=== PATIENT | male | born 1945 | race Caucasian/White ===

== ENCOUNTER 2018-05-17 07:33 | Inpatient (IN) | payer OTHER ==
[2018-04-23 09:42] VITALS: BMI 33.0
--- NOTE | 2018-04-26 12:23 | PAT Medication Instructions ---
Service Date Apr 26, 2018. Current Home Medication List Aspirin (Aspirin Ec), 81 MG PO 1-2X PER WEEK Multivitamin (Multivitamin), 1 TAB PO QAM Naproxen (Naprosyn), 500 MG PO BID PRN for Pain Tamsulosin HCl (Tamsulosin HCl), 1 TAB PO QAM Medication Instructions For Your Scheduled Surgery -Continue as directed: Aspirin (Aspirin Ec), 81 MG PO 1-2X PER WEEK - Hold the following medications 7-10 days prior to surgery per surgeon: Naproxen (Naprosyn), 500 MG PO BID PRN for Pain - Hold the following medications the morning of surgery: Multivitamin (Multivitamin), 1 TAB PO QAM - Take the following medications the morning of surgery with a sip of water: Tamsulosin HCl (Tamsulosin HCl), 1 TAB PO QAM If you have any questions please call us at [phone] or [phone] or [phone]
--- NOTE | 2018-04-26 13:04 | DIAGNOSTIC IMAGING REPORT ---
CHEST 2 VIEWS ROUTINE CLINICAL HISTORY: Preoperative chest COMPARISON STUDY: 03/14/2014 FINDINGS: The cardiac and mediastinal contours are normal. There is no evidence of focal pulmonary consolidation. There is no evidence of failure. No pleural effusions are visualized.[ IMPRESSION: No active disease in the chest. Electronically signed by: Gregorio Liao M.D. 04/26/2018 1:02 PM Dictated Date/Time: 04/26/2018 1:02 PM
[2018-04-26 13:14] LABS: BASO % 0.3 %; BASO ABS # 0.02 K/uL (0-0.2); EOS % 2.2 %; EOS ABS # 0.14 K/uL (0-0.5); HEMATOCRIT 45.2 % (42-52); HEMOGLOBIN 15.2 g/dL (14.0-18.0); IG# 0.02 K/uL (0.00-0.02); LYMPH % 22.4 %; MEAN CELL VOLUME 95.2 fL (80-100); MEAN CORPUSCULAR HGB CONC 33.6 g/dl (32-36); MONO % 6.3 %; MONO ABS # 0.39 K/uL (0.11-0.59); NEUT % 68.5 %; NEUT ABS # 4.27 K/uL (1.4-6.5); PLATELET COUNT 223 K/uL (130-400); RED CELL DISTRIBUTION WIDTH CV 12.6 % (11.5-14.5); RED CELL DISTRIBUTION WIDTH SD 43.8 fL (36.4-46.3); WHITE BLOOD COUNT 6.24 K/uL (4.8-10.8)
[2018-04-26 13:26] LABS: HEMOGLOBIN A1C 5.3 % (4.5-5.6)
[2018-04-26 13:27] LABS: PTT PATIENT 26.8 SECONDS (21.0-31.0)
[2018-04-26 13:42] LABS: ALBUMIN 3.7 gm/dl (3.4-5.0); CALCIUM 8.5 mg/dl (8.5-10.1); CREATININE 0.97 mg/dl (0.60-1.40); POTASSIUM 4.6 mmol/L (3.5-5.1)
--- NOTE | 2018-04-26 14:17 | HISTORY & PHYSICAL EXAMINATION ---
DATE OF ADMISSION: 05/17/2018 CHIEF COMPLAINT: Right knee pain. HISTORY OF PRESENT ILLNESS: Mr. Porter is a 72-year-old male with a multiple-year history of right knee pain. Patient rates his pain as 3/10. He has pain with his daily activities. He has limited standing and walking tolerance. Pain is worse with weightbearing. Patient has failed injections, naproxen and physical therapy. He has failed conservative treatment and is now scheduled for right knee replacement. PAST MEDICAL HISTORY: Osteoarthritis. He denies heart disease, diabetes or DVT. PAST SURGICAL HISTORY: Left total knee, 2013. SOCIAL HISTORY: Patient denies alcohol or tobacco use. He lives in a single story home. He is . 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 FAMILY HISTORY: Negative for DVT. MEDICATIONS: Flomax, aspirin, naproxen and a multivitamin. ALLERGIES: None. REVIEW OF SYSTEMS: See HPI. Ten other systems reviewed, all negative. PHYSICAL EXAMINATION: VITAL SIGNS: Height 6 feet 1 inch, weight 247 pounds, BMI 33. GENERAL: This is a well-developed, well-nourished male who is alert and oriented x3. Mood and affect are appropriate. HEENT: Normocephalic, atraumatic. Mucous membranes are moist and intact. NECK: Supple without lymphadenopathy. HEART: Regular rate and rhythm without murmurs, rubs or gallops. LUNGS: Clear to auscultation without wheezes or rhonchi. ABDOMEN: Soft and nontender. Bowel sounds are equal and active. EXTREMITIES: No ecchymosis, redness or warmth. He has varus deformity. Range of motion is from 0-110 degrees with +2 laxity. He has mild distal edema and mild effusion. IMPRESSION: Degenerative joint disease, right knee. PLAN: Patient will be admitted for a right total knee arthroplasty. We will plan on aspirin for DVT prophylaxis. Patient is going to do outpatient physical therapy versus home nursing agency.
[~2018-05-17] VITALS: Ht 185.4 cm; Wt 112.0 kg
[2018-05-17] VITALS (8 sets, daily range): BP systolic 102–143; BP diastolic 54–85; PULSE 52–72; TEMP 36.5–36.8; O2SAT 92–97; Ht 185.4 cm; Wt 112.0 kg
[~2018-05-17 07:33] MED LIST: ACETAMINOPHEN 500 MG TAB PO SCH; ASPI81TA28 PO; BUPIVACAINE 0.5 % 5 MG/1 ML PF 10ML VIAL ONE; CEFAZOLIN 2000MG IV PUSH 15 ML IV SCH; CeleBREX 200 MG CAP PO SCH; DEXAMETHASONE 4 MG TAB PO SCH; FAMOTIDINE 20 MG TAB PO SCH; FLM4 PO; GABAPENTIN 300 MG CAP PO SCH; LACTATED RINGER'S 1000ML 1,000 ML IV SCH; LACTATED RINGER'S 1000ML 500 ML IV SCH; METOCLOPRAMIDE HCL 10 MG TAB PO SCH; MULT-506 PO; NAPR-22 PO; ROPIVACAINE 0.5% 5 MG/ML 30 ML VIAL ONE; ROPIVACAINE 5MG/ML 30 ML 150 MG, BUPIVACAINE 0.5% MPF INJ 30 ML, EpINEphrine HCL INJ 0.... INFIL SCH; TRANEXAMIC ACID INJ 1,000 MG x 2 Bags IV SCH
--- NOTE | 2018-05-17 08:14 | History & Physical Bridge Note ---
H&P Re-Evaluation Bridge Note: I have examined the patient, reviewed the History & Physical and in the interval since the performance of the History & Physical I have noted the following changes of clinical significance: No changes noted
[2018-05-17] MEDS ORDERED: SENN-65 PO (08:31)
[2018-05-17] MEDS ORDERED: LIDOCAINE HCL 2% 2 ML VIAL (20MG/ML) ONE (08:41)
[2018-05-17] MEDS ORDERED: PROPOFOL IV EMULSION 10 MG/ML 20 ML VIAL ONE ×2 (08:41→11:28)
[2018-05-17] MEDS ORDERED: MIDAZOLAM HCL 1 MG/ML 2ML VIAL ONE (08:42)
[2018-05-17] MEDS ORDERED: ATROPINE SULFATE 0.1 MG/ML 5ML SYR IV PRN (08:45)
[2018-05-17] MEDS ORDERED: ONDANSETRON INJ 2 MG/ML 2 ML VIAL IV PRN ×2 (08:45→12:00)
[2018-05-17] MEDS ORDERED: FENTANYL CITRATE INJ 50 MCG/1 ML 2 ML VIAL IV PRN (08:45)
[2018-05-17] MEDS ORDERED: PHENYLEPHRINE 100MCG/ML 5ML SYR IV PRN (08:45)
[2018-05-17] MEDS ORDERED: EpHEDrine SULFATE INJ 50 MG/ML AMP IV PRN (08:45)
[2018-05-17] MEDS ORDERED: HYDROmorphone INJ 0.5 MG/0.5 ML SYR IV PRN (08:45)
[2018-05-17] MEDS ORDERED: BACITRACIN 50000 UNIT VIAL ONE (10:02)
[2018-05-17] MEDS ORDERED: POVIDONE-IODINE OP SOLN 30 ML BTL ONE (10:02)
[2018-05-17] MEDS ORDERED: ORTHO JOINT ANESTHETIC ONE (10:02)
[2018-05-17] MEDS ORDERED: EpHEDrine SULFATE 50MG/5ML SYR ONE (10:35)
--- NOTE | 2018-05-17 11:22 | [facility] Post Operative Brief Note ---
Immediate Operative Summary Operative Date May 17, 2018. Pre-Operative Diagnosis Right Knee Degenerative Joint Disease Post-Operative Diagnosis Right Knee Degenerative Joint Disease Procedure(s) Performed Right Total Knee Arthroplasty Surgeon Dr. Perfecto Villa Engineer Steam Surgeon(s) Juan Carlos Maravilla PA-C Estimated Blood Loss 20mL Findings Consistent with Post-Op Diagnosis Specimens A: Rigth knee bone & tissue Anesthesia Type MAC Spinal Regional Complication(s) none Disposition Accompanied Pt To Recover: no Overlapping Procedure I was present for: the critical portions of procedure. I was immediately available: during the entire case
[2018-05-17] MEDS ORDERED: OXYCODONE HCL IR 5 MG TAB (IMMEDIATE RELEASE) PO PRN (12:00)
[2018-05-17] MEDS ORDERED: MAGNESIUM HYDROXIDE SUSP 30 ML UDC PO PRN (12:00)
[2018-05-17] MEDS ORDERED: BISACODYL 10 MG SUPP PR PRN (12:00)
[2018-05-17] MEDS ORDERED: CEFAZOLIN IV 2,000 MG in DEXTROSE 5% 50ML 50 ML IV SCH (12:00)
[2018-05-17] MEDS ORDERED: TRAMADOL HCL 50 MG TAB PO PRN (12:00)
[2018-05-17] MEDS ORDERED: MoRPHine SULFATE 2 MG/ML CARP IV PRN (12:00)
[2018-05-17] MEDS ORDERED: ALUMINUM/MAGNESIUM/SIMETH (MAALOX MAX) 30 ML UDC PO PRN (12:00)
--- NOTE | 2018-05-17 12:32 | Anesthesiology Progress Note ---
Anesthesia Post Op Note Date & Time May 17, 2018 at 12:31 Vital Signs Pain Intensity: 0 Vital Signs Past 12 Hours Date Time Temp Pulse Resp B/P (MAP) Pulse Ox O2 Delivery O2 Flow Rate FiO2 05/17/18 12:25 36.6 72 16 99/62 96 Room Air 05/17/18 12:15 78 16 111/60 94 Room Air 05/17/18 12:05 73 16 111/54 97 Oxymask 3 05/17/18 11:57 36.6 76 16 97/53 97 Oxymask 5 05/17/18 08:15 36.5 52 22 143/85 97 Room Air Notes Mental Status: alert / awake / arousable, participated in evaluation Pt Amnestic to Procedure: Yes Nausea / Vomiting: adequately controlled Pain: adequately controlled Airway Patency, RR, SpO2: stable & adequate BP & HR: stable & adequate Hydration State: stable & adequate Neuraxial Anesthesia: was administered, sensory block is resolving Anesthetic Complications: no major complications apparent
--- NOTE | 2018-05-17 12:45 | DIAGNOSTIC IMAGING REPORT ---
R KNEE 1 OR 2 VIEWS ROUTINE CLINICAL HISTORY: AP/LATERAL IN PACU RIGHT KNEE postoperative evaluation COMPARISON: None. DISCUSSION: Total right knee replacement. Good contact between prosthetic and underlying bone. Surgical drains are in position. Expected soft tissue postoperative change IMPRESSION: Anatomic alignment posttotal right knee arthroplasty. The above report was generated using voice recognition software. It may contain grammatical, syntax or spelling errors. Electronically signed by: Felipe Mckeon M.D. 05/17/2018 12:44 PM Dictated Date/Time: 05/17/2018 12:43 PM
--- NOTE | 2018-05-17 13:25 | OPERATIVE REPORT ---
DATE OF OPERATION: 05/17/2018 PREOPERATIVE DIAGNOSIS: Osteoarthritis, right knee. POSTOPERATIVE DIAGNOSIS: Osteoarthritis, right knee. PROCEDURE: Right total knee arthroplasty. SURGEON: Dr. Villa. WOOD HEEL CEMENTER: JOSE Davidson ANESTHESIA: Spinal. COMPLICATIONS: None. IMPLANTS USED: Femoral size 6, tibia size 6, tibial poly 9, patella size 39. DISPOSITION: Recovery room, stable. OPERATION AND FINDINGS: Following induction of spinal anesthesia, the patient's right leg was prepped and draped in the usual sterile manner. Limb was exsanguinated with an Esmarch bandage and tourniquet was inflated to 350 mmHg. A longitudinal incision was made anteriorly. Subcutaneous tissue was sharply dissected. Electrocautery was used for hemostasis. Prepatellar bursa was incised and median parapatellar incision was performed. Patella was everted and the knee was flexed. Fat pad was removed to aid in visualization and the anterior and posterior cruciate ligaments were removed. The medial face of the tibia was cleared of soft tissue first with a Bovie and a Keenan elevator. This tissue was retracted posteriorly using a blunt Hohmann. A Jewell retractor was used to expose the synovium above on the anterior aspect of the femur and this was removed down to bone. The PSI guide was placed on the distal femur and two pins were placed anteriorly and kept in position and two additional pins were placed distally and removed. The distal femoral cutting block was placed in position and the distal femoral cut was used in the +0 setting. Next, the cutting block was removed and the femoral 3 block was placed in the distal end of the femur. Care was taken to ensure appropriate external rotation and feeler gauge was used to ensure no notching would occur. The femoral block was centered on the distal femur and in the medial and lateral direction and was fixed using two bone screws. The gold pins were then removed. The oscillating saw was used to create the bone cuts and the distal femoral cutting block was removed and the reciprocating saw was used to further trim the femoral cuts as well as a deep in the area for the trochlear groove. Next, posterior condyle remnants were removed. Following this, a meniscal clamp and knife were utilized to remove the anterior portion of both medial and lateral meniscus. The proximal tibia PSI guide was placed into position and the proximal tibial cutting guide was screwed into position. The extra medullary alignment guide was utilized to ensure appropriate alignment. The proximal tibia was cut and the proximal tibial cutting block was removed and this bone fragment was removed. The appropriate guide was used to perform the notch cut on the distal femur and a lamina track watchman and a cochlear knife were utilized to finish both medial and lateral meniscectomies to remove any remnants of the posterior or anterior cruciate ligaments. Following this, the distal femoral component was impacted into position and blunt Eleni was used to sublux the tibia anteriorly. The proximal tibia was sized and a 6 tibial tray was chosen as the size to be used. This was put into position and appropriate external rotation and a double check with extramedullary alignment guide was performed. The canal for the tibial stem was prepared first with a 17 mm drill and then the punch and a mallet and the trial tibial poly was placed. A 9 was chosen the size to be used. It was brought to extension and the patella was prepared with the patellar reamer. A 39 component was chosen the size to be used. The trial component was placed and knee was taken through a full range of motion and there was found to be no lateral subluxation of the tibia. No lateral release was required. The trials were all removed. The final components were obtained and assembled. Cement was mixed. The knee was thoroughly irrigated and the ortho mix was injected about the knee joint. The final components were cemented into position. After thoroughly suctioning and drying the bone ends, all excess cement was removed. The knee was held in extension while the cement hardened. The wound was irrigated and closed over a Hemovac drain. #1 Vicryl was used to close the extensor mechanism. Subcutaneous tissues closed using 0 Dexon. Skin was closed with iraida. Sterile dressing of Adaptic, 4 x 4's, sterile Webril, and Chucky was applied. The patient tolerated the procedure well. Due to the complex nature of the procedure, the entire surgery was performed with the operational assistance of JOSE Davidson. The radiology assistant, under direct supervision, was involved in the actual performance of all aspects of the surgical procedure including hemostasis, tissue retraction and incision, instrument management, patient positioning, and wound closure. I attest to the content of the Intraoperative Record and any orders documented therein. Any exception s are noted below.
[2018-05-17] MEDS: FERROUS GLUCONATE 324 MG TAB PO SCH ×2 (14:05→17:41)
[2018-05-17] MEDS: D5W AND 1/2NSS + 20MEQ KCL 1,000 ML IV SCH ×2 (14:06→23:43)
[2018-05-17] MEDS: ACETAMINOPHEN 500 MG TAB PO SCH ×2 (15:39→23:42)
[2018-05-17] MEDS: CEFAZOLIN IV 2,000 MG in SYRINGE 0 ML IV SCH (17:58)
[2018-05-17] MEDS: CeleBREX 200 MG CAP PO SCH (20:11)
[2018-05-17] MEDS: SENNA 8.6 MG TAB PO SCH (20:11)
[2018-05-17] MEDS: DOCUSATE SODIUM 100 MG CAP PO SCH (20:11)
[2018-05-17] MEDS: ASPIRIN 81 MG ECTAB PO SCH (20:12)
[2018-05-18] MEDS: CEFAZOLIN IV 2,000 MG in SYRINGE 0 ML IV SCH (01:53)
[2018-05-18 03:54] VITALS: BP 104/55; PULSE 60; TEMP 36.5; O2SAT 97
[2018-05-18 06:25] LABS: HEMATOCRIT 40.6 % (42-52); HEMOGLOBIN 13.8 g/dL (14.0-18.0); MEAN CELL VOLUME 93.3 fL (80-100); MEAN CORPUSCULAR HEMOGLOBIN 31.7 pg (25-34); MEAN PLATELET VOLUME 10.6 fL (7.4-10.4); PLATELET COUNT 197 K/uL (130-400); RED CELL DISTRIBUTION WIDTH CV 12.2 % (11.5-14.5); RED CELL DISTRIBUTION WIDTH SD 41.3 fL (36.4-46.3); WHITE BLOOD COUNT 16.27 K/uL (4.8-10.8)
[2018-05-18 06:59] LABS: CREATININE 0.93 mg/dl (0.60-1.40)
[2018-05-18 07:00] LABS: CALCIUM 8.4 mg/dl (8.5-10.1); POTASSIUM 4.3 mmol/L (3.5-5.1)
[2018-05-18 07:14] VITALS: BP 114/62; PULSE 54; TEMP 36.6; O2SAT 97
--- NOTE | 2018-05-18 07:46 | Orthopedic Progress Note ---
Orthopedic Progress Note Date of Service May 18, 2018. Subjective Post OP Day: 1 Reports: feeling well Objective N/V intact, dressing C/D/I (Hemovac in place), toes mobile Date Time Temp Pulse Resp B/P (MAP) Pulse Ox O2 Delivery O2 Flow Rate FiO2 05/18/18 07:14 36.6 54 18 114/62 (79) 97 Room Air 05/18/18 03:54 36.5 60 16 104/55 (71) 97 Room Air 05/17/18 23:30 Room Air 05/17/18 22:51 36.6 55 16 114/62 (79) 96 Room Air 05/17/18 19:22 36.8 68 18 136/77 (96) 96 Room Air 05/17/18 15:40 Room Air 05/17/18 15:19 36.5 72 18 105/61 (76) 95 Room Air 05/17/18 14:15 68 16 102/58 (73) 95 05/17/18 13:30 56 15 103/54 (70) 95 05/17/18 13:00 92 Room Air 05/17/18 13:00 92 Room Air 05/17/18 12:55 36.5 65 15 119/62 (81) 92 Room Air 05/17/18 12:40 73 15 116/49 92 Room Air 05/17/18 12:25 36.6 72 16 99/62 96 Room Air 05/17/18 12:15 78 16 111/60 94 Room Air 05/17/18 12:05 73 16 111/54 97 Oxymask 3 05/17/18 11:57 36.6 76 16 97/53 97 Oxymask 5 05/17/18 08:15 36.5 52 22 143/85 97 Room Air Laboratory Results 24 Hours: Test 05/18/18 06:08 Hematocrit 40.6 % Hemoglobin 13.8 g/dL Assessment & Plan Assessment: 72 yo male stable POD #1 s/p right TKA Plan: 1. Med management 2. DVT prophylaxis- ASA, SCDs 3. PT/OT 4. D/C planning- home w/ HH
--- NOTE | 2018-05-18 07:46 | Anesthesiology Progress Note ---
Anesthesia Post Op Note Date & Time May 18, 2018 at 07:46 Vital Signs Pain Intensity: 0.0 Vital Signs Past 12 Hours Date Time Temp Pulse Resp B/P (MAP) Pulse Ox O2 Delivery O2 Flow Rate FiO2 05/18/18 07:14 36.6 54 18 114/62 (79) 97 Room Air 05/18/18 03:54 36.5 60 16 104/55 (71) 97 Room Air 05/17/18 23:30 Room Air 05/17/18 22:51 36.6 55 16 114/62 (79) 96 Room Air Notes Mental Status: alert / awake / arousable, participated in evaluation Pt Amnestic to Procedure: Yes Nausea / Vomiting: adequately controlled Pain: adequately controlled Airway Patency, RR, SpO2: stable & adequate BP & HR: stable & adequate Hydration State: stable & adequate Anesthetic Complications: no major complications apparent
--- NOTE | 2018-05-18 08:12 | Discharge Instructions ---
Discharge Instructions Date of Service May 18, 2018. Admission Reason for Admission: Right Knee Osteoarthritis Discharge Discharge Diagnosis / Problem: Right knee arthritis Discharge Goals Goal(s): Decrease discomfort, Improve function Activity Recommendations Activity Limitations: as noted below Weightbearing Status: Right weightbearing (as tolerated) . Instructions / Follow-Up Instructions / Follow-Up ACTIVITY RECOMMENDATIONS: SELF CARE INSTRUCTIONS AFTER TOTAL KNEE REPLACEMENT A. You may need to continue a physical therapy program after discharge from the hospital. There are several options available to you. Your doctor will assist you in selecting the best one for you. 1. An out-patient facility 2 to 3 times a week for therapy or home therapy. 2. Continue working on all exercises taught to you in the hospital. Your goals should be to increase bending of your knee to 90 degrees and beyond and to fully straighten your knee. B. You may progress at your own pace from walking with a walker or crutches to a cane; then to no assistive devices. C. Make walking a part of your daily routine. Be up as much as comfortable with rest periods throughout the day. Rest with leg elevation is very important. Use the ice wrap frequently for the first 3-4 weeks. D. There are no restrictions on activities. You may ride in a car, shop, participate in director of user experience and all social activities. E. Wear the long elastic stockings (DANIELA hose) 20 hours a day for 2 weeks after surgery. They can be removed several times a day for laundering and for a bath. F. You may shower, no tub baths until cleared by your doctor. SPECIAL CARE INSTRUCTIONS: VERY IMPORTANT TO READ AND REVIEW A. There are a few signs you need to watch for after you are home. Call [facility] if you notice any of the followin. Increased severe knee pain. Some pain is expected especially when you exercise. 2. Increased swelling in your leg or knee; pain or swelling of the calf muscle in either lower leg. 3. Any fluid drainage from the incision. 4. Shortness of breath or chest pain. B. Please call [facility] at if you have any concerns or questions about your operation or recovery. The doctor or his nurse will return your call promptly. C. You must take antibiotics before dental work, bladder, bowel or other surgery. Your doctor will provide you with a permanent care to carry describing this precaution. IMPORTANT: * REMEMBER TO TAKE ASPIRIN, 81 MG, TWICE DAILY FOR 4 WEEKS UNLESS OTHERWISE DIRECTED. THIS IS YOUR BLOOD THINNER. * HIGH RISK PATIENTS MAY BE PRESCRIBED A STRONGER BLOOD THINNER. THIS WILL BE PROVIDED AT DISCHARGE. * CALL IF INCREASED PAIN, REDNESS, DRAINAGE OR FEVER GREATER THAT 101. * WEAR DANIELA HOSE 20 HOURS PER DAY FOR 2 WEEKS. * YOU MAY HAVE A LARGE BAND-AID LIKE DRESSING (SILVERON). THIS WILL REMAIN ON YOUR INCISION FOR 7 DAYS, THEN CAN BE REMOVED. IF INCISION IS LEAKING THROUGH DRESSING, CALL THE OFFICE . Zip Skin Closure You have a Zipline Closure System. As noted below, this keeps your incision closed. Change the dressing daily. Keep the wound covered with a dressing as it has the potential to snag on your clothing. The Zipline will remain on for a total of 2 weeks. Do not remove it! You will be given instructions by nursing staff at the time of discharge to care for your Zip Closure System. This devices uses plastic straps to keep your incision closed and protected throughout your recovery. If you have any questions please refer to these instructions first. FOLLOW UP VISIT: If appointment is not already scheduled: Please call [facility] to make a follow-up appointment for 05/28/18 with Clinton Comer PA-C in [place] office at . Current Hospital Diet Patient's current hospital diet: Regular Diet Discharge Diet Recommended Diet: Regular Diet Procedures Procedures Performed: Right Total Knee Arthroplasty Pending Studies Studies pending at discharge: no Laboratory Results Hemoglobin A1c Test 04/26/18 12:39 Range/Units Estimated Average Glucose 105 mg/dl Hemoglobin A1c 5.3 4.5-5.6 % Medical Emergencies . Who to Call and When: Medical Emergencies: If at any time you feel your situation is an emergency, please call 911 immediately. . Non-Emergent Contact Non-Emergency issues call your: Surgeon Call Non-Emergent contact if: temperature is above 101.5, your pain is not controlled, wound has increased drainage, wound has increased redness . "Provider Documentation" section prepared by Clinton Comer PA-C. . [place] Drug Monitoring Program Search Results: patient reviewed within database, no issues identified
[2018-05-18] MEDS: ACETAMINOPHEN 500 MG TAB PO SCH ×3 (08:16→23:30)
[2018-05-18] MEDS: DOCUSATE SODIUM 100 MG CAP PO SCH ×2 (08:16→21:39)
[2018-05-18] MEDS: FERROUS GLUCONATE 324 MG TAB PO SCH ×3 (08:16→18:05)
[2018-05-18] MEDS: MULTIVITAMIN TAB PO SCH (08:17)
[2018-05-18] MEDS: TAMSULOSIN HCL 0.4 MG CAP PO SCH (08:17)
[2018-05-18] MEDS: CeleBREX 200 MG CAP PO SCH ×2 (08:17→21:40)
[2018-05-18] MEDS: ASPIRIN 81 MG ECTAB PO SCH ×2 (08:18→21:39)
[2018-05-18 11:21] VITALS: BP 92/53; PULSE 47; TEMP 36.3; O2SAT 95
[2018-05-18 15:38] VITALS: BP 109/54; PULSE 58; TEMP 36.5; O2SAT 97
[2018-05-18] MEDS: SENNA 8.6 MG TAB PO SCH (21:40)
[2018-05-18 23:56] VITALS: BP 127/61; PULSE 65; TEMP 36.9; O2SAT 95
[2018-05-19 06:38] VITALS: BP 115/69; PULSE 65; TEMP 36.8; O2SAT 96
[2018-05-19 07:26] VITALS: O2SAT 96
[2018-05-19 07:33] VITALS: BP 115/69; PULSE 65; TEMP 36.8; O2SAT 96
--- NOTE | 2018-05-19 08:32 | Orthopedic Progress Note ---
Orthopedic Progress Note Date of Service May 19, 2018. Subjective Post OP Day: 2 Reports: feeling well Objective N/V intact, incision C/D/I, toes mobile Date Time Temp Pulse Resp B/P (MAP) Pulse Ox O2 Delivery O2 Flow Rate FiO2 05/19/18 07:33 36.8 65 16 96 Room Air 05/19/18 07:26 96 Room Air 05/19/18 06:38 36.8 65 16 115/69 (84) 96 Room Air 05/18/18 23:56 36.9 65 18 127/61 (83) 95 Room Air 05/18/18 23:15 Room Air 05/18/18 15:38 36.5 58 16 109/54 (72) 97 Room Air 05/18/18 15:08 Room Air 05/18/18 11:21 36.3 47 18 92/53 (66) 95 Room Air Assessment & Plan Assessment: 72 yo male stable POD #2 s/p right TKA Plan: 1. Med management 2. DVT prophylaxis- ASA, SCDs 3. PT/OT 4. D/C planning- home w/ HH
[2018-05-19] MEDS ORDERED: ACET-24 PO (08:35)
[2018-05-19] MEDS ORDERED: CLB200 PO (08:35)
[2018-05-19] MEDS ORDERED: ASPI-461 PO (08:35)
[2018-05-19] MEDS ORDERED: RXC5 PO (08:35)
[2018-05-19] MEDS: MULTIVITAMIN TAB PO SCH (08:51)
[2018-05-19] MEDS: FERROUS GLUCONATE 324 MG TAB PO SCH (08:51)
[2018-05-19] MEDS: ACETAMINOPHEN 500 MG TAB PO SCH (08:51)
[2018-05-19] MEDS: ASPIRIN 81 MG ECTAB PO SCH (08:52)
[2018-05-19] MEDS: CeleBREX 200 MG CAP PO SCH (08:52)
[2018-05-19] MEDS: TAMSULOSIN HCL 0.4 MG CAP PO SCH (08:52)
[2018-05-19] MEDS: DOCUSATE SODIUM 100 MG CAP PO SCH (08:52)
--- NOTE | 2018-05-21 12:44 | DISCHARGE SUMMARY ---
DISCHARGE DIAGNOSIS: Degenerative joint disease, right knee. SECONDARY DIAGNOSIS: Osteoarthritis. CONSULTS: None. COMPLICATIONS: None. PROCEDURES: Right total knee arthroplasty performed by Dr. Villa on 05/17/2018. BRIEF HISTORY: As dictated in the history and physical. HOSPITAL SUMMARY: The patient was admitted on the above-noted date and had the above-noted surgery performed which he tolerated well. On the first postoperative day, the patient was feeling well. Neurovascularly intact. Dressings were clean, dry, and intact. Toes were mobile and vital signs were stable and the patient was afebrile. Hemoglobin was 13.8 and he was started on physical therapy protocol and continued on DVT prophylaxis and pain management. By his second postoperative day, he was feeling well. Neurovascularly he was intact. Incision was clean, dry, and intact. Toes were mobile. Vital signs were stable. He was afebrile. He was progressing with his physical therapy and remaining stable and it was felt he could be discharged to home with home health services. For further review, please see chart. LAB AND X-RAY DATA: As per chart. DISCHARGE INSTRUCTIONS: The patient was discharged to home in satisfactory condition on 05/19/2018. DIET: Regular. ACTIVITY: Weightbearing as tolerated, right lower extremity. Follow TKA instruction sheets and special care instructions as noted. Follow up with Dr. Clinton Comer PA-C in the [place] office in 2 weeks. DISCHARGE MEDICATIONS: Acetaminophen at 1000 mg p.o. q. 8 hours for 14 days, aspirin 81 mg p.o. b.i.d. for 28 days, Celebrex 200 mg p.o. b.i.d. for 30 days, oxycodone 5-10 mg p.o. q. 6 hours p.r.n. Resume home meds as listed. Stop taking naproxen and after 28 days, resume your once daily dosing of aspirin. MTDD
== END 2018-05-19 12:00 | disposition home health service (06) | DRG 470 ==
LOC: C.ACU 07:33 → C.3E 08:30 → ENRESERV 12:20
PROC: 0SRC0J9 Replacement of Right Knee Joint with Synthetic Substitute, Cemented, Open Approach (ICD-10-PCS; principal; 2018-05-17 10:15)
DX: M17.11 Unilateral primary osteoarthritis, right knee (principal); Z79.82 Long term (current) use of aspirin; Z79.899 Other long term (current) drug therapy

== ENCOUNTER 2025-09-05 09:16 | Inpatient (IN) ==
--- NOTE | 2025-08-20 08:37 | PAT Medication Instructions ---
Medication Instructions Date of Service August 20, 2025 Home Medications cholecalciferol (vitamin D3) 50 mcg (2,000 unit) capsule (Vitamin D3) 50 mcg PO QAM cyanocobalamin (vitamin B-12) 1,000 mcg capsule 1,000 mcg PO QAM docusate sodium 100 mg capsule (Stool Softener) 200 mg PO HS memantine 10 mg tablet 10 mg PO BID multivitamin 1 tab PO QAM tamsulosin 0.4 mg capsule 0.4 mg PO BID DO NOT take the morning of surgery cholecalciferol (vitamin D3) 50 mcg (2,000 unit) capsule (Vitamin D3) 50 mcg PO QAM cyanocobalamin (vitamin B-12) 1,000 mcg capsule 1,000 mcg PO QAM multivitamin 1 tab PO QAM Take morning of surgery With a small sip of water, OTHERWISE NOTHING TO EAT OR DRINK AFTER MIDNIGHT: memantine 10 mg tablet 10 mg PO BID tamsulosin 0.4 mg capsule 0.4 mg PO BID Take evening before surgery docusate sodium 100 mg capsule (Stool Softener) 200 mg PO HS memantine 10 mg tablet 10 mg PO BID tamsulosin 0.4 mg capsule 0.4 mg PO BID Other Notes If you have any questions please call us at [phone] or [phone] or [phone] or [phone]
--- NOTE | 2025-08-27 13:02 | Anesthesiology Consultation ---
Date of Service August 27, 2025 Assessment & Plan (1) Encounter for pre-operative examination: - PCP office visit 07/18/25 [facility]: "...pretty much ready to get the knee surgery done...For upcoming total knee replacement- preop recommendations including good nutrition and hydration and avoidance of crowds preop was encouraged..." - cardiology office visit 01/22/25 [facility]: "...SSS/TBS. PAT on zio patch 06/2023. RBBB...HR and BP well controlled-it does sound that he had some semblance to try to stop himself from falling given the injury to the hand, do not suspect dysrhythmia or profound bradycardia as a contributing factor at this point (ECG on presentation indicated sinus rhythm with right bundle-branch block unchanged from baseline)-if he has a recurrent event similar to this would recommend consideration of a Zio monitor or implantable loop depending on the situation, I have encouraged him to reach out if this occurs... cataract surgery later this month with Dr. Bateman-he is cleared from a cardiac perspective to undergo procedure as planned no additional cardiac workup is necessary-We discussed possible symptoms of bradycardia to look out for which may included lightheadedness, dizziness, increased fatigue, generalized weakness, SOB/DEVRIES- Educated patient on caution with change in positions to minimize symptomatic orthostatic hypotension...no indication for a ppm at this juncture...Follow up 1 year..." - Outpatient joint assessment: Patient is currently scheduled for inpatient pathway. If re-evaluated and patient/surgeon requests outpatient pathway, patient is not a candidate for outpatient joint program. Patient's verbalized understanding temporary or permanent memory changes can occur with surgery-she denied questions or concerns. - Case discussed in detail with Dr. Ford who advised patient is acceptable to proceed and nothing further is needed. Chart Review Chart Review: Acceptable Risk for Surgery and Patient seen in Pre Admission Testing Teaching & Discussion Pre-Anesthesia Teaching/Discussion Notes: Instructed NPO after midnight before surgery, except medications with 15 cc of water. Medication instructions provided according to the PAT guidelines. History Surgery Operation Date: 09/10/25 12:15 Proposed Procedures p Left Knee Total Knee Arthroplasty Patellar Revison Poly Exchnge, Possible Left Total Knee Revision - Luis Jaramillo MD Patient is accompanied today by his . Height/Weight Height: 6 ft 1 in Weight: 108.7 kg Allergies Allergy/AdvReac Type Severity Reaction Status Date / Time No Known Allergies Allergy Verified 08/20/25 07:57 Medications Home Medications Medication Instructions Recorded Confirmed Last Taken cholecalciferol (vitamin D3) 50 50 mcg PO QAM 08/20/25 08/20/25 Unknown mcg (2,000 unit) capsule (Vitamin D3) cyanocobalamin (vitamin B-12) 1,000 mcg PO QAM 08/20/25 08/20/25 Unknown 1,000 mcg capsule docusate sodium 100 mg capsule 200 mg PO HS 08/20/25 08/20/25 Unknown (Stool Softener) memantine 10 mg tablet 10 mg PO BID 08/20/25 08/20/25 Unknown multivitamin 1 tab PO QAM 08/20/25 08/20/25 Unknown tamsulosin 0.4 mg capsule 0.4 mg PO BID 08/20/25 08/20/25 Unknown Past Medical History Medical History (Updated 08/28/25 @ 12:33 by Lisa Iyer PA-C) Arthritis BPH (benign prostatic hyperplasia) Constipation Memory problem new dx Parkinsonism follows with [facility] neurology SSS (sick sinus syndrome) follows with [facility] cardiology Patient denies h/o stroke, seizures, heart attack, heart failure, DM, HTN, blood clots/DVTs or blood transfusions. Exercise / Class Metabolic Activity III < 4 Walking/Shop/Light housework (denies chest discomfort or shortness of breath with usual activities) Past Family History Family History Other No family history of adverse response to anesthesia Past Surgical History Surgical History H/O elbow surgery right H/O prostate biopsy benign History of anesthesia reaction difficulty voiding after surgery>required catheter History of appendectomy History of cataract surgery right History of colonoscopy History of repair of rotator cuff left History of tonsillectomy History of tooth extraction History of total knee replacement right/left Past Anesthesia History No Family Hx of Anesthesia Complications and Other (difficulty voiding post-op requiring catheterization) History of PONV No Hx of PONV and No Hx of Motion Sickness Social History Smoking Status: Never smoker Do You Dip or Chew Tobacco: No Hx Alcohol Use: No substance use type: does not use Review of Systems Patient denies chest pain, shortness of breath, dyspnea on exertion, snoring, witnessed apneas, reflux, fever, chills, cough, wheezing, or palpitations. Physical Exam Vital Signs Vitals BP 129/69 P 58 TEMP 98.2 SP02 95% on RA RESP 18 Physical Patient resting comfortably in chair in no acute distress, alert and oriented, responding appropriately throughout visit Full cervical extension range of motion without pain TMD 3.5 finger breadths Mallampati Score 2 Dentition: several implants, bridges, caps and crowns, denies chipped or loose teeth Lungs: normal respiratory effort. Good air movement, clear throughout to auscultation, no adventitious breath sounds Cardiac: regular rate and rhythm, no murmurs noted Carotid arteries: negative bruit bilat Lab Results Anesthesia Preop Results Results Anesthesia Widget: WBC 7.07 K/ul (4.8-10.8) 08/27/25 Hgb 15.1 g/dl (14.0-18.0) 08/27/25 Hct 44.0 % (42.0-52.0) 08/27/25 Plt 248 K/uL (130-400) 08/27/25 Na 139 mmol/L (136-145) 08/27/25 K 4.2 mmol/L (3.5-5.1) 08/27/25 Cl 106 mmol/L (98-107) 08/27/25 CO2 27 mmol/L (21-32) 08/27/25 BUN 20 mg/dl (6-23) 08/27/25 Creat 0.98 mg/dl (0.6-1.4) 08/27/25 Glucose Level 85 mg/dl (70-99(Fasting)) 08/27/25 PT 10.8 Seconds (9.0-12.0) 08/27/25 PTT 28 Seconds (21-31) 08/27/25 INR 1.0 (0.9-1.1) 08/27/25 Urine Color Dark Yellow 08/27/25 Urine Appearance Clear (Clear) 08/27/25 Urine pH 6.0 (4.5-7.5) 08/27/25 Urine Specific [place] 1.024 (1.000-1.030) 08/27/25 Urine Protein Negative (Negative) 08/27/25 Urine Glucose (UA) Negative (Negative) 08/27/25 Urine Ketones Negative (Negative) 08/27/25 Urine Blood Negative (Negative) 08/27/25 Urine Nitrite Negative (Negative) 08/27/25 Urine Bilirubin Negative (Negative) 08/27/25 Urine Urobilinogen Negative (Negative) 08/27/25 Urine Leukocyte Esterase Negative (Negative) 08/27/25 Blood Type A Positive 08/27/25 Antibody Screen NEGATIVE 08/27/25 Testing Electrocardiogram Date: 12/24/24 Sinus rhythm with PAC, rate 71 bpm Left axis deviation RBBB Chest X-Ray Date: 08/27/25 No acute findings. Echocardiogram Date: 07/13/23 LVEF 64% Normal LV wall motion Grade I diastolic dysfunction Mildly dilated RV with normal systolic function Mild aortic valve regurgitation Cervical Spine Date: 12/24/24 No fracture Other Testing Chest CT 12/24/24 No dissection Mildly displaced fracture of the right 2nd, 3rd and 4th ribs posteriorly and medially about the costovertebral facet. Likely chronic. Periosteal response Lungs are well aerated without a focal area of consolidation Abdomen pelvis CT 12/24/24 No acute intra-abdominal process. No free fluid in the pelvis. No osseous injury. No evidence of visceral injury. Low attenuation within the right lobe of the liver posteriorly and medially. Peripheral nodular enhancement. Favor hemangioma. Liver laceration felt unlikely Severely enlarged prostate gland. BPH vs prostatic mass. Mass effect upon the adjacent base of the bladder. Likely related although a bladder mass is not excluded Severe diverticulosis without evidence of diverticulitis Narrowing of the proximal transverse colon. Likely spasm/lack of distension Head CT 12/24/24 No acute parenchymal abnormality
--- NOTE | 2025-09-03 14:27 | History & Physical Report ---
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 No obvious loosening of the femur or tibial components but will likely have polyethylene wear of the tibial component and there is some associated osteolysis. This appears to be aseptic with normal inflammatory parameters. Will proceed with knee joint exploration and revision of patella component possibly requiring tantalum patella revision. Will inspect tibial polyethylene and may require tibial polyethylene exchange to a more constrained CPS tibial polyethylene component. If any metallic implant loosening then proceed with complete revision if necessary. Encounter type: initial encounter Qualified Code(s): T84.038A - Mechanical loosening of other internal prosthetic joint, initial encounter; Z96.659 - Presence of unspecified artificial knee joint History of Present Illness Chief Complaint: Chronic left knee pain Primary Care Provider: Rahel Kilpatrick MD 80-year-old male with chronic left knee pain status post left total knee arthroplasty in 2013. Patient denies headaches, sweats, fevers, chills, double vision, blurred vision, cough, sore throat, dysphagia, chest pain, sob, wheezing, n/v/d/c, numbness, tingling, fatigue, urinary symptoms, mood disorders. Allergies Allergy/AdvReac Type Severity Reaction Status Date / Time No Known Allergies Allergy Verified 08/20/25 07:57 Home Medications Medication Instructions Recorded Confirmed Type cholecalciferol (vitamin D3) 50 50 mcg PO QAM 08/20/25 08/20/25 History mcg (2,000 unit) capsule (Vitamin D3) cyanocobalamin (vitamin B-12) 1,000 mcg PO QAM 08/20/25 08/20/25 History 1,000 mcg capsule docusate sodium 100 mg capsule 200 mg PO HS 08/20/25 08/20/25 History (Stool Softener) memantine 10 mg tablet 10 mg PO BID 08/20/25 08/20/25 History multivitamin 1 tab PO QAM 08/20/25 08/20/25 History tamsulosin 0.4 mg capsule 0.4 mg PO BID 08/20/25 08/20/25 History Past Med/Surg History Problem List (Updated 09/03/25 @ 14:25 by Luis Jaramillo MD) Loosening of knee joint prosthesis Encounter for pre-operative examination Right knee DJD Left knee DJD (Acute 05/08/14) Medical History (Updated 09/03/25 @ 14:25 by Luis Jaramillo MD) SSS (sick sinus syndrome) follows with [facility] cardiology Parkinsonism follows with [facility] neurology Arthritis BPH (benign prostatic hyperplasia) Constipation Memory problem new dx Surgical History History of anesthesia reaction difficulty voiding after surgery>required catheter H/O elbow surgery right History of repair of rotator cuff left History of total knee replacement right/left H/O prostate biopsy benign History of colonoscopy History of appendectomy History of tooth extraction History of tonsillectomy History of cataract surgery right Family History Other No family history of adverse response to anesthesia Social History Smoking Status: Never smoker Second Hand Exposure: No; Do You Dip or Chew Tobacco: No; Hx Alcohol Use: No Preferred Language: [place] Clinical Research Director Required: No Beliefs That Will Affect Care: None Current Living Situation: Spouse Feels Safe at Home: Yes Safety Concerns: Feels Safe At This Time Assistive Devices: Glasses and Hearing Aid - Bilateral Review of Systems All systems reviewed & are unremarkable except as noted in HPI & below Physical Exam Constitutional: WD/WN, vitals as above Respiratory: normal respiratory effort; no respiratory distress Cardiovascular: Rate/Rhythm: regular rate and regular rhythm Musculoskeletal: Left knee exam demonstrates neutral alignment benign surgical scars mild effusion and swelling. Patellofemoral crepitation moderate some laxity with varus and valgus stress more notable mid flexion. Range of motion 0 to 125 degrees. Grinding patellofemoral joint with step up onto a stool with frictional rubbing sound. Distal neurocirculatory exam intact. 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 No loosening obvious femoral or tibial component but some potential osteolysis around the edge of components medially nuclear scan increased activity bone patella primarily in some of the anterior femur area no loosening of the tibia and no complete loosening of the femur based on this study.
[~2025-09-05 09:16] MED LIST changes: -ACETAMINOPHEN 500 MG TAB PO SCH; -ASPI81TA28 PO; -CEFAZOLIN 2000MG IV PUSH 15 ML IV SCH; -CeleBREX 200 MG CAP PO SCH; -DEXAMETHASONE 4 MG TAB PO SCH; -FAMOTIDINE 20 MG TAB PO SCH; -FLM4 PO; -GABAPENTIN 300 MG CAP PO SCH; -LACTATED RINGER'S 1000ML 1,000 ML IV SCH; -LACTATED RINGER'S 1000ML 500 ML IV SCH; -METOCLOPRAMIDE HCL 10 MG TAB PO SCH; -MULT-506 PO; -NAPR-22 PO; -ROPIVACAINE 5MG/ML 30 ML 150 MG, BUPIVACAINE 0.5% MPF INJ 30 ML, EpINEphrine HCL INJ 0.... INFIL SCH; -TRANEXAMIC ACID INJ 1,000 MG x 2 Bags IV SCH
--- NOTE | 2025-09-05 09:55 | History & Physical Bridge Note ---
Date of Service September 05, 2025 History & Physical Bridge Note I have examined the patient, reviewed the History & Physical and in the interval since the performance of the History & Physical I have noted the following changes of clinical significance: no changes noted
[2025-09-05] MEDS: VANCOMYCIN HCL 1,750 MG in SODIUM CHLORIDE 0.9% 500 ML IV SCH (10:15)
[2025-09-05] MEDS: LR 500ML BOLUS, THEN 15ML/HR IV SCH (10:15)
[2025-09-05] MEDS: dexAMETHasone**PF** 10 MG/ML VIAL IV SCH (10:44)
[2025-09-05] MEDS: ACETAMINOPHEN 500 MG TAB PO SCH ×2 (10:44→22:40)
[2025-09-05] MEDS: GABAPENTIN 300 MG CAP PO SCH (10:45)
[2025-09-05] MEDS: FAMOTIDINE 20 MG TAB PO SCH (10:45)
[2025-09-05] MEDS: METOCLOPRAMIDE HCL 10 MG TABLET PO SCH (10:45)
[2025-09-05] MEDS: LR 60ML/HR IV SCH (10:46)
[2025-09-05] MEDS: CeleBREX 200 MG CAP PO SCH (10:46)
[2025-09-05] MEDS ORDERED: PROPOFOL IV EMULSION 10 MG/ML 20 ML VIAL IV ONE ×5 (11:22→15:40)
[2025-09-05] MEDS ORDERED: MIDAZOLAM HCL 1 MG/ML 2ML VIAL ONE (11:23)
[2025-09-05] MEDS ORDERED: LIDOCAINE 2% 2 ML VIAL/AMP(20MG/ML) INFIL ONE (11:23)
[2025-09-05] MEDS ORDERED: ONDANSETRON INJ 2 MG/ML 2 ML VIAL ONE (11:23)
[2025-09-05] MEDS: TRANEXAMIC ACID 1,000 MG **IV Pre-op IV SCH (12:47)
[2025-09-05] MEDS ORDERED: BUPIVACAINE 0.5 % 5 MG/1 ML PF 10ML VIAL ONE (13:07)
[2025-09-05] MEDS ORDERED: PHENYLEPHRINE 100MCG/ML 5ML SYR ONE ×2 (14:54→18:25)
[2025-09-05] MEDS: ORTHO JOINT ANESTHETIC ONE (15:19)
[2025-09-05] MEDS ORDERED: SUCCINYLCHOLINE 100MG/5ML SYR IV ONE (16:04)
[2025-09-05] MEDS ORDERED: ROCURONIUM BROMIDE 10 MG/ML 5 ML VIAL IV ONE (16:05)
[2025-09-05] MEDS: ROPIVACAINE 0.5% HCL/PF 246 MG, Ketorolac (*for OR use only*) 30 MG in SODIUM CHLORIDE ... INFIL SCH (18:46)
[2025-09-05] MEDS ORDERED: SUGAMMADEX SODIUM 200 MG/2 ML VIAL IV ONE (19:21)
[2025-09-05] MEDS ORDERED: ceFAZolin 330 MG/ML 1 GM VIAL ONE (19:29)
--- NOTE | 2025-09-05 20:25 | Operative Report ---
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 Tricompartmental osteolysis with osteolysis behind all components and metallosis underlying all components without james loosening of the tibia or femoral metallic components. I identified the patient and participated in the time-out.: Yes Procedure Operation Date: 09/05/25 12:00 Actual Procedures p Revision of left total knee all 3 components, excision of multiple displaced avascular bone fragments of patella, electrocautery synovectomy and extensive debridement of synovium with titanium metallosis, increased level of difficulty due to extensive osteolysis and metallosis related synovitis and multiple polyethylene fragments, application of angela and Acticoat superficial wound VAC.- Luis Jaramillo MD Surgeon Luis Jaramillo MD Environmental Quality Analyst Bola GARCIA Estimated Blood Loss 300 Findings Consistent with Post-Op Diagnosis Specimens Multiple including bone fragments synovium frozen section cultures. Drains 2 Hemovac Anesthesia Type MAC Spinal Regional Complications none Disposition Disposition: Surgical ICU Indications 80-year-old male with left knee mechanical crepitation and knee effusion and chronic pain and instability. History of left knee replacement in 2013. Radiographs demonstrate loosening of the patella and multiple fragments of the patella. There is medial compartment narrowing not clearly [id number] but some irregularity of the medial tibial component but no loosening of the tibial component or femoral components. Bone scan demonstrates no increased uptake of the tibia but some increased signal of the anterior flange of the femoral component and around the patella which is loose. Inflammatory parameters are all negative. Description of Procedure Patient had regional block and spinal anesthetic and placed supine on the operating table and MAC tourniquet is placed was left upper thigh. Knee exam demonstrated effusion mid flexion instability with varus valgus stress is polyethylene post is still stable. Left lower extremity was prepped and draped with ChloraPrep. Leg was elevated exsanguinated with an Esmarch bandage and the tourniquet was raised to 325 mmHg. Anterior incision was made through his prior scar. Skin incised sharply and subcutaneous flaps were elevated. There was some black discoloration of the VMO tendon area concerning for metallosis. There was clearly bone fragments of the patella that were palpable in the medial retinaculum superior to the patella and lateral to the patella with widening of the patella due to all these fragments. The extensor mechanism was still intact. Incision was made into the medial retinaculum up into the mid third of the quadriceps tendon down to the medial side of the tibial tubercle. There was scarred synovial tissue which was totally black throughout the whole knee consistent with titanium [id number] wear from somewhere within the joint. Large fragment of bone was shelled out from the medial retinaculum. Other frag ments of bone were shelled out from around the patella and the patellar polyethylene which was grossly loose and removed. There was osteolysis underlying the patella component causing loosening and there was metallosis within the osteolytic synovitis there. The patella component itself had wear and fracturing. A very thorough electrocautery synovectomy was performed moving the scarred thickened synovial tissue. A good amount of the metallosis was able to be removed with the electrocautery synovectomy but not all of it. A synovectomy was performed in the medial and lateral gutter suprapatellar pouch region. The tibial polyethylene was evaluated and the posterior aspect of the medial side tibial polyethylene was worn right through it and multiple fractured piece of polyethylene were floating about the knee joint. This component was excised. This allowed further exposure of the patella which need to be addressed to get exposure of the femur. The patella was everted and multiple f ragments around the patella and the quad tendon and lateral retinacular areas and patella tendon were all removed by shelling out these bone fragments from the existing tendon tissue. A provisional cut was made to flatten out the patella and this was measured at 16 mm and I felt that there was enough patella there of the main intact fragment that we could resurface it. Inspecting the metallic components further noted that the femoral condyle of the femur had worn through the tibial polyethylene into the titanium component of the tibial tray and worn through the medial side the tibial tray with the posterior aspect being totally dished out and worn down to the fixation hole on the undersurface which was exposed by the wear. The femoral condyle showed a generalized dulling of the surface with more superficial wear than the tibia. There was significant osteolysis and metallosis related osteolysis around the edges of the femoral component and the tibial component undermining the edges of the component without causing loosening of either component. Because of the tibial wear and scuffing of the femur total revision was indicated. Attention was first taken to the femur and a small thin oscillating saw was utilized to saw around the edges of the femoral component on all sides and then we used flexible osteotomes to free up the femoral component which was then removed with a bone tamp. The membrane underlying that was sent for frozen section came back chronic inflammation. There is multiple areas of osteolysis underlying the femoral component and some bone wear more on the medial condyle than the lateral. These areas were curetted out and all old cement was removed. At this point the tourniquet time was 2 hours so we put a CR femoral trial over the femur with a trial tibial poly extended than the let the tourniquet down in order to revascularize the knee. During this time further treatment was performed to the patella with curettage of the patella component of the areas of osteolysis of the remaining fragment. The aqua Noelle was used to work on hemostasis. We also used a Versajet and some areas to remove some of the metallosis on the synovium. The knee was otherwise packed with sponges until 20 minutes of recirculation and then we reelevated the leg exsanguinated it once again and raise the tourniquet up again. Trials removed and attention was taken to the tibia. The tibia was well-fixed though it did have osteolysis all around it and large osteophytes around the medial tibia that were removed with rongeur and a medial and posterior medial capsule release was performed for exposure. The oscillating saw, flexible osteotomes, stacked osteotomes and a Selma extractor were used to remove the tibia. The cement was removed with small curved oste otome and small straight osteotomes to remove all the cement that remained. The Collin persona revision knee system was utilized. For step was using the reamers to ream the canal to the appropriate size. Tibia was reamed to a 16 in the femur to an 18. Attention was first taken to the tibia which was exposed with retractors. Tibia sized for G with a 6 mm offset and the appropriate reamers including the offset reamer were used and punch for the stem fins. The trial was assembled had excellent fit. This was removed and attention was taken to the femur. The stem was placed into the femoral canal and the distal femoral cutting guide placed onto the stem and we did a skim cut of a millimeter so off the end of the femur and aligned the distal femoral cutting guide with the tibial cut and did our anterior posterior and chamfer cuts. Posteriorly required 5 mm augments bilaterally. The femur was sized for 11 component. Best position was a 3 mm offset. The offset reamer was utilized at the appropriate position. Femoral trial was assembled had an excellent fit. Trial reduction with the CCK was 14 gave the appropriate stability and range of motion. The trials were removed. The knee joint was copiously irrigated with pulsatile lavage saline solution. Further debridement of synovitic osteolytic bone was performed where necessary and the Versajet was utilized as well. After p reparing the bone satisfactory on the tibia and femur the components were assembled which were the left tibia G tibia with a 16 x 135 mm stem with a 6 mm offset. The femur was the 11 standard femur with a bilateral 5 mm posterior augments with a 18 x 135 mm stem. Stems were close pin design press-fit and proximal cementing of the components. Tibia was cemented first followed by the femur followed by a trial placed in place and he was placed in full extension until the cement cured. After the cement cured ,the tourniquet was let down again. Hemostasis was obtained as needed with the aqua mantis. The joint was irrigated with Irrisept. This was washed out with saline and then the 14 CCK polyethylene was inserted followed by the screw which was tightened with a torque device. Attention was then taken to the patella. The patella cut was revised to make the patella by 15 mm thick and then we downsized the patella to a 35 so we get into good bone with the 3 pegs. Bone was irrigated dried and then the 35 mm symmetrical patella button was cemented with the refobacin antibiotic cement. After the cement cured the knee was again irrigated with Irrisept and saline solution. 2 drains were brought out laterally connected to a Hemovac. The quadriceps tendon distally in the medial retinaculum were repaired with [id number] #2 FiberWire sutures and an additional suture of [id number] FiberWire was placed at the apex of the split in the quad tendon proximally and then another suture at the level of the tibial polyethylene. The quadriceps tendon was then repaired with a running locking 0 STRATAFIX suture starting at the apex of the quad split down to the mid patella level. The remaining of the medial retinaculum was closed with #2 Vicryl sutures with excellent repair of the entire closure. Knee was taken through range of motion was completely stable through full range of motion had 0 through 130 degrees range of motion. The subcutaneous tissues were then closed with interrupted 2-0 Vicryl sutures skin was closed with surgical iraida and a angela and Acticoat superficial wound VAC was applied. Bola GARCIA participated as family services assistant through the entire procedure. He assisted in prepping and draping and leg positioning and retraction and instrument management and wound closure and application of the superficial wound VAC and postoperative care of the patient. There was an increased level of difficulty due to the avascular necrosis and fragmentation of patella condition with extensive scar tissue throughout the knee that made exposure difficulty and tedious dissection and removal of the fragments was required that required time well beyond that of a normal knee revision surgery. There was also extensive metallosis throughout the knee that required debridement and synovectomy that was well beyond that of a typical knee replacement revision. Due to these conditions the length of surgery added to the procedure was 2 hours additional operating room time. Im ordering collagen sheets as a primary dressing and bordered super absorbent for secondary dressings for the wound resulting from this surgery. Collagen is being utilized to encourage the growth of blood vessels and granulation tissue. The collagen will also speed up the wound healing process, increase skin tensile strength at the surgery site and lessen the chance of a wound dehiscence, help prevent infection, and reduce the appearance of scarring. The silicone secondary dressings will protect the wound and help keep it clean and minimize that chances for infection. I believe that this treatment protocol is medically necessary to help facilitate the best outcome possible for my patient. I attest to the content of the Intraoperative Record and any orders documented therein. Any exceptions are noted below.
[2025-09-05] MEDS ORDERED: HYDROmorphone INJ 1 MG/ML SYRINGE IV PRN (20:27)
[2025-09-05] MEDS ORDERED: ONDANSETRON INJ 2 MG/ML 2 ML VIAL IV PRN ×2 (20:27→22:17)
[2025-09-05] MEDS ORDERED: ATROPINE SULFATE 0.1 MG/ML 10ML SYR IV PRN (20:27)
--- NOTE | 2025-09-05 20:55 | Anesthesiology Progress Note ---
Date of Service September 05, 2025 Anesthesia Post Procedure Vital Signs Vital Signs: Temp Pulse Resp BP Pulse Ox O2 Del Method O2 Flow Rate 09/05/25 20:45 97.5 F L 76 19 108/58 L 95 Room Air 09/05/25 20:35 76 17 115/64 99 Room Air 09/05/25 20:25 76 24 110/58 L 98 Oxymask 4 09/05/25 20:15 77 22 116/63 97 Oxymask 4 09/05/25 20:08 97.2 F L 77 20 89/61 L 97 Oxymask 4 09/05/25 10:01 97.7 F 20 144/75 H 62 L Room Air Transfer of Care Handoff Completed per policy Notes Mental Status: alert / awake / arousable and participated in evaluation Patient Amnestic to Procedure: Yes Nausea / Vomiting: adequately controlled Pain: adequately controlled Airway Patency, RR, SpO2: stable & adequate BP & HR: stable & adequate Hydration State: stable & adequate Anesthetic Complications: no major complications apparent and Pt Satisfied with anesthetic care Notes: EKG showed SR with pacs, cards consulted will see while inpatient
[2025-09-05] MEDS ORDERED: KETOROLAC TROMETHAMINE 15 MG/ML VIAL IV PRN (22:17)
[2025-09-05] MEDS ORDERED: diphenhydrAMINE Capsule 25 MG CAP PO PRN (22:17)
[2025-09-05] MEDS ORDERED: ALUMINUM/MAGNESIUM SUSP 30 ML UDC PO PRN (22:17)
[2025-09-05] MEDS ORDERED: METOCLOPRAMIDE HCL INJ 5 MG/ML 2 ML VIAL IV PRN (22:17)
[2025-09-05] MEDS ORDERED: HYDROmorphone INJ 0.5 MG/0.5 ML SYR IV PRN (22:17)
[2025-09-05] MEDS ORDERED: NALOXONE HCL 0.4 MG/1 ML VIAL/CARP IV PRN (22:17)
[2025-09-05] MEDS: TAMSULOSIN HCL 0.4 MG CAP PO SCH (22:36)
[2025-09-05] MEDS: MEMANTINE HCL 10 MG TAB PO SCH (22:36)
[2025-09-05] MEDS: DOCUSATE SODIUM 100 MG CAP PO SCH (22:40)
[2025-09-05] MEDS: SODIUM CHLORIDE 0.9% 1,000 ML IV SCH (22:51)
--- NOTE | 2025-09-05 23:36 | Hospitalist Consultation ---
Date of Consultation September 05, 2025 Assessment & Plan (1) Loosening of knee joint prosthesis: Final Assessment and Recommendations as follows : Status post left TKA Patient clinically well Postop hypotension, resolved with ongoing IVF SSS status post PPM on Eliquis hx PAF/PSVT as per records mild AR Parkinson's dementia as per records, patient mentating well BPH, on Flomax Steroid-induced hyperglycemia rule out DM Continue postop IVF Delirium precautions Check hemoglobin A1c with a.m. labs DVT prophylaxis. Eliquis as per postop orders Thank you very much for this consultation. Dr. Mckoy will follow patient's progress. History of Present Illness Reason for Consultation: Medical management Requesting Physician: Dr. Johnson/Bola Porter PA-C Attending Physician: Luis Jaramillo MD History of Present Illness PCP: Dr. Kilpatrick History obtained from patient and records. Medical history significant for SSS status post PPM on Eliquis, PAF/PSVT, mild AR, hypertension, BPH, Parkinson's dementia as per records, BPH. Last confinement under Orthopedics service 2018 for elective right total knee arthroplasty. Patient underwent elective left total knee surgery today. Postop SBP 80s. Concern for transient A-fib as per provider note. Patient currently comfortable. Denies chest pain, SOB. 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4 mg capsule 0.4 mg PO BID 08/20/25 09/05/25 History acetaminophen 500 mg tablet 1,000 mg (2 x 500 mg) PO Q8H #90 09/05/25 Rx (Tylenol Extra Strength) tabs aspirin 81 mg tablet,delayed 81 mg PO BID #60 tabs 09/05/25 Rx release cefadroxil 500 mg capsule 500 mg PO Q12H #28 caps 09/05/25 Rx celecoxib 200 mg capsule (Celebrex) 200 mg PO Q12H #60 caps 09/05/25 Rx oxycodone 5 mg tablet 5 mg PO Q4H PRN pain #30 tabs 09/05/25 Rx Patient History Medical History SSS (sick sinus syndrome) follows with [facility] cardiology Parkinsonism follows with [facility] neurology Arthritis BPH (benign prostatic hyperplasia) Constipation Memory problem new dx Surgical History History of anesthesia reaction difficulty voiding after surgery>required catheter H/O elbow surgery right History of repair of rotator cuff left History of total knee replacement right/left H/O prostate biopsy benign History of colonoscopy History of appendectomy History of tooth extraction History of tonsillectomy History of cataract surgery right Family History Other No family history of adverse response to anesthesia Social History Smoking Status: Never smoker Second Hand Exposure: No; Do You Dip or Chew Tobacco: No; Tobacco Cessation Education Requested by Patient: No Hx Alcohol Use: No Hx Substance Use: No Preferred Language: [place] Decal Cutter Required: No Beliefs That Will Affect Care: None Current Living Situation: Spouse Other Information That Helps Us Care for You: No Feels Safe at Home: Yes Safety Concerns: Feels Safe At This Time Assistive Devices: Glasses, Hearing Aid - Bilateral and Walker Review of Systems Review of Systems: As per HPI, all other systems reviewed and negative Physical Exam Physical Exam: GENERAL: Comfortable, pleasant, obese, no respiratory distress SKIN: Normal color, warm HEENT: [place] palpebral conjunctivae, no ptosis, dry buccal mucosa NECK : Supple, no tenderness CHEST : CTA, no tenderness HEART : RRR, no obvious murmurs ABDOMEN: Some distention, nontender EXTREMITIES : LLE dressing, LE SCDs noted, palpable pulses, no other conspicuous deformities noted NEUROLOGIC : Oriented to month and year, no facial asymmetry, gait and stance not assessed Results & Data Results & Data Vital Signs (Past 12 Hours) Vital Signs Temp Pulse Resp BP Pulse Ox O2 Del Method O2 Flow Rate 09/05/25 21:20 72 20 113/56 L 94 Room Air 09/05/25 21:05 74 15 115/57 L 96 Room Air 09/05/25 20:55 72 16 112/58 L 97 Room Air 09/05/25 20:45 36.4 C L 76 19 108/58 L 95 Room Air 09/05/25 20:35 76 17 115/64 99 Room Air 09/05/25 20:25 76 24 110/58 L 98 Oxymask 4 09/05/25 20:15 77 22 116/63 97 Oxymask 4 09/05/25 20:08 36.2 C L 77 20 89/61 L 97 Oxymask 4 Laboratory Results Laboratory Results POC Glucose 166 mg/dl (70-99) H 09/05/25 22:20 (1) Loosening of knee joint prosthesis Encounter type: initial encounter Qualified Code(s): T84.038A - Mechanical loosening of other internal prosthetic joint, initial encounter; Z96.659 - Presence of unspecified artificial knee joint
[2025-09-05 23:56] LABS: Hematocrit (blood only) 41.4 % (42.0-52.0); Hemoglobin 14.1 g/dL (14.0-18.0); Mean Corpuscular Hemoglobin 31.8 pg (25.0-34.0); Mean Corpuscular Volume 93.2 fL (80.0-100.0); Platelet Count 229 K/uL (130-400); RDW Standard Deviation 40.9 fL (36.4-46.3); Red Blood Count 4.44 M/uL (4.70-6.10); White Blood Count 17.06 K/ul (4.8-10.8)
[2025-09-06 00:12] LABS: Anion Gap 7.0 (3-11); Blood Urea Nitrogen 23.0 mg/dl (6-23); Calcium 8.6 mg/dl (8.6-10.3); Carbon Dioxide 25.0 mmol/L (21-32); Chloride 103.0 mmol/L (98-107); Creatinine Clr Calc Pharmacy 78.0 ml/min; Glucose 146.0 mg/dl (70-99(Fasting)); Potassium 4.6 mmol/L (3.5-5.1); Sodium 135.0 mmol/L (136-145)
[2025-09-06 00:13] LABS: Immature Granulocytes # (auto) 0.08 K/uL (0.01-0.20); Immature Granulocytes % (auto) 0.5 %
[2025-09-06 00:56] LABS: Magnesium 2.1 mg/dl (1.7-2.4)
[2025-09-06] MEDS: TRANEXAMIC ACID / 0.7% NACL 1,000 MG/100 ML BAG IV SCH (03:11)
[2025-09-06 06:22] LABS: Hematocrit (blood only) 38.3 % (42.0-52.0); Hemoglobin 12.9 g/dL (14.0-18.0); Mean Corpuscular Hemoglobin 31.5 pg (25.0-34.0); Mean Corpuscular Volume 93.4 fL (80.0-100.0); Platelet Count 219 K/uL (130-400); RDW Standard Deviation 41.3 fL (36.4-46.3); Red Blood Count 4.10 M/uL (4.70-6.10); White Blood Count 15.41 K/ul (4.8-10.8)
[2025-09-06 06:41] LABS: Anion Gap 5.0 (3-11); Blood Urea Nitrogen 25.0 mg/dl (6-23); Calcium 8.4 mg/dl (8.6-10.3); Carbon Dioxide 25.0 mmol/L (21-32); Chloride 105.0 mmol/L (98-107); Creatinine Clr Calc Pharmacy 74.4 ml/min; Glucose 115.0 mg/dl (70-99(Fasting)); Potassium 4.4 mmol/L (3.5-5.1); Sodium 135.0 mmol/L (136-145)
[2025-09-06 07:34] LABS: Hemoglobin A1C 5.4 % (4.5-5.6)
--- NOTE | 2025-09-06 07:54 | Orthopedic Progress Note ---
Date of Service September 06, 2025 Assessment & Plan (1) Loosening of knee joint prosthesis: Plan: POD #1 s/p Revision of left total knee all 3 components, excision of multiple displaced avascular bone fragments of patella, electrocautery synovectomy and extensive debridement of synovium with titanium metallosis, increased level of difficulty due to extensive osteolysis and metallosis related synovitis and multiple polyethylene fragments, application of angela and Acticoat superficial I had a long discussion with the patient this morning about 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 I showed pictures to the patient of what metallosis looks like as well as discussed the procedure that he underwent yesterday. The patient will participate in PT/OT today. Because of the length of time of the tourniquet, the patient will be on Eliquis 2.5 mg twice daily for at least 2 weeks for DVT prophylaxis. Will also continue DANIELA stockings and SCDs. There was concern for an onset of A-fib intraoperatively so the patient was placed in telemetry and cardiology was consulted. Pain controlas written. Discharge planningplan will be for admission at least through tomorrow. If he is doing well with the left knee as well as minimal drainage from the Hemovac and cardiology feels he is stable, the patient may be able to be discharged tomorrow. I also discussed with the patient that he may stay 2 more days. Admission and Anticipated Discharge Date Admission Date: September 05, 2025 Subjective Patient is doing well postop day #1 from a revision left total knee arthroplasty. All components were exchanged. Pain is controlled in the left knee at this time. No complaints this morning. Physical Exam Constitutional: WD/WN, vitals as above well developed and well nourished; no acute distress Musculoskeletal: Knee: + surgical incision (Left knee dressing C/D/I) and + surgical drain present (200 cc total over 12 hours); knee normal to inspection, no skin erythema and no ecchymosis Skin: no rashes, warm and dry Trauma: no evidence of skin trauma Neurologic: normal touch/pain/proprioception Psychiatric: A+Ox3, euthymic affect Speech: normal rate/rhythm/volume of speech Results & Data Vital Signs (Past 12 Hours) Vital Signs Temp Pulse Pulse Pulse Resp BP BP 09/06/25 07:25 36.4 C L 64 18 131/75 09/06/25 07:12 64 09/06/25 03:24 112/59 L 09/06/25 02:32 36.4 C L 68 18 94/52 L 09/05/25 21:55 09/05/25 21:55 36.5 C 78 18 128/63 09/05/25 21:47 76 09/05/25 21:20 72 20 113/56 L 09/05/25 21:05 74 15 115/57 L 09/05/25 20:55 72 16 112/58 L 09/05/25 20:45 36.4 C L 76 19 108/58 L 09/05/25 20:35 76 17 115/64 09/05/25 20:25 76 24 110/58 L 09/05/25 20:15 77 22 116/63 09/05/25 20:08 36.2 C L 77 20 89/61 L Pulse Ox O2 Del Method O2 Flow Rate 09/06/25 07:25 96 Room Air 09/06/25 07:12 09/06/25 03:24 09/06/25 02:32 95 Room Air 09/05/25 21:55 Room Air 09/05/25 21:55 97 Room Air 09/05/25 21:47 09/05/25 21:20 94 Room Air 09/05/25 21:05 96 Room Air 09/05/25 20:55 97 Room Air 09/05/25 20:45 95 Room Air 09/05/25 20:35 99 Room Air 09/05/25 20:25 98 Oxymask 4 09/05/25 20:15 97 Oxymask 4 09/05/25 20:08 97 Oxymask 4 Laboratory Results Laboratory Tests 09/06/25 05:32 WBC 15.41 H Hgb 12.9 L Hct 38.3 L Sodium 135 L Potassium 4.4 BUN 25 H Creatinine 1.06 (1) Loosening of knee joint prosthesis Encounter type: initial encounter Qualified Code(s): T84.038A - Mechanical loosening of other internal prosthetic joint, initial encounter; Z96.659 - Presence of unspecified artificial knee joint
[2025-09-06] MEDS: CHOLECALCIFEROL 25 MCG (1000 UNITS) TAB PO SCH (08:25)
[2025-09-06] MEDS: MULTIVITAMIN TAB PO SCH (08:26)
[2025-09-06] MEDS: CYANOCOBALAMIN (B-12) 500 MCG TABLET PO SCH (08:26)
[2025-09-06] MEDS: DOCUSATE SODIUM 100 MG CAP PO SCH (08:26)
[2025-09-06] MEDS: dexAMETHasone 10 MG in SYRINGE 0 ML IV SCH (08:30)
--- NOTE | 2025-09-06 09:28 | Hospitalist Progress Note ---
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 no edwards I spent a total of 43 minutes coordinating, documenting, and providing care for this patient excluding time spent in the performance of separately billed services. This included personally reviewing all current laboratories and imaging studies, medical reconciliation, outpatient chart review and discussion with specialists Admission and Anticipated Discharge Date Admission Date: September 05, 2025 Subjective feeling well this AM. author assisted patient in getting his hearing aid battery out. Patient denies F/C, CP, palpitations, SOB, dyspnea, abd pain, N/V/D Physical Exam Physical Exam: Vitals and labs reviewed General: Well appearing, NAD HEENT: EOMI, PERRLA Neck: Supple Cardiac: RRR no rubs gallops or murmurs Lungs: CTA no rhonchi wheezing or rales Abd: S NT ND BS positive : No edwards MSK: drain in place Full ROM. No obvious deformities Ext: No Edema cyanosis Skin: Warm, Dry Neuro: AOx3 No focal deficits. Psych: Normal Mood Results & Data Results & Data Vital Signs (Past 12 Hours) Vital Signs Temp Pulse Pulse Pulse Resp BP Pulse Ox 09/06/25 07:25 36.4 C L 64 18 131/75 96 09/06/25 07:12 64 09/06/25 03:24 112/59 L 09/06/25 02:32 36.4 C L 68 18 94/52 L 95 09/05/25 21:55 09/05/25 21:55 36.5 C 78 18 128/63 97 09/05/25 21:47 76 O2 Del Method 09/06/25 07:25 Room Air 09/06/25 07:12 09/06/25 03:24 09/06/25 02:32 Room Air 09/05/25 21:55 Room Air 09/05/25 21:55 Room Air 09/05/25 21:47 Laboratory Results Abnormal lab results 09/05/25 09/05/25 09/06/25 Range/Units 22:20 23:37 05:32 WBC 17.06 H 15.41 H (4.8-10.8) K/ul RBC 4.44 L 4.10 L (4.70-6.10) M/uL Hgb 12.9 L (14.0-18.0) g/dL Hct 41.4 L 38.3 L (42.0-52.0) % Neut # (Auto) 15.89 H (1.40-6.50) K/uL Lymph # (Auto) 0.47 L (1.20-3.40) K/uL Braxton # (Auto) 0.60 H (0.11-0.59) K/uL Sodium 135 L 135 L (136-145) mmol/L BUN 25 H (6-23) mg/dl BUN/Creatinine Ratio 22.8 H 23.6 H (10-20) Glucose 146 H 115 H (70-99(Fasting)) mg/dl POC Glucose 166 H (70-99) mg/dl Calcium 8.4 L (8.6-10.3) mg/dl 09/06/25 Range/Units 08:18 WBC (4.8-10.8) K/ul RBC (4.70-6.10) M/uL Hgb (14.0-18.0) g/dL Hct (42.0-52.0) % Neut # (Auto) (1.40-6.50) K/uL Lymph # (Auto) (1.20-3.40) K/uL Braxton # (Auto) (0.11-0.59) K/uL Sodium (136-145) mmol/L BUN (6-23) mg/dl BUN/Creatinine Ratio (10-20) Glucose (70-99(Fasting)) mg/dl POC Glucose 100 H (70-99) mg/dl Calcium (8.6-10.3) mg/dl (1) Loosening of knee joint prosthesis Encounter type: initial encounter Qualified Code(s): T84.038A - Mechanical loosening of other internal prosthetic joint, initial encounter; Z96.659 - Presence of unspecified artificial knee joint
--- NOTE | 2025-09-06 10:57 | Cardiology Consultation ---
<Statement entered by Celi Sánchez, DO - 09/06/25 14:51> I have reviewed the advanced practitioner's documentation and agree with the plan of care. I accept the responsibility for the associated risk. pt seen in cardiology consultation due to possible pAF in the setting of TKR; he has underlying SSS/TBS but no pacemaker as of yet; pt reports otherwise feeling well Currently POD 1 from his TKR; no arrhythmias on telemetry recommend zio patch upon discharge and I will see him in the office in about a month after zio is placed continue current home cardiac medications; as well as the eliquis given the post op TKR and then I will decide as an out pt if we see pAF the necessity to continue please re-consult as necessary I spent a total of 45 minutes coordinating, documenting, and providing care for this patient excluding time spent in the performance of separately billed services or time spent by another provider/QHP. Date of Consultation September 06, 2025 Assessment & Plan (1) PAT (paroxysmal atrial tachycardia): (2) RBBB: Plan -HR and BP well controlled -no events noted on telemetry -patient does NOT have a pacemaker as he has no symptoms with the brief episodes of bradycardia or PAT that have been noted on outpatient evaluations - Previous workup has not presented with any evidence of high degree AV block - Zio completed in 2022 did indicate an episode of PAT which I suspect is what may have happened intraoperatively - Will coordinate an outpatient ZIO monitor for additional evaluation -no additional cardiac workup is neccesary Case discussed with Dr. Sánchez. Please see attestation for additional recommendations. I spent a total of 40 minutes on the date of service in preparation, delivery, and documentation of the care provided to the patient excluding any time spent in the performance of separately billed services. YESI Betts Department of Cardiology, [facility] This chart was completed in part utilizing Speech Voice Recognition Software. Grammatical errors, random word insertions, pronoun errors, and incomplete sentences are an occasional consequence of this system due to software limitations, ambient noise, and hardware issues. Any formal questions or concerns about the content, text, or information contained within the body of this dictation should be directly addressed to the provider for clarification. History of Present Illness Reason for Consultation: Possible A Fib intra Op Requesting Physician: Orthopedics Attending Physician: Luis Jaramillo MD History of Present Illness 80-year-old male seen in consultation today in regard to possible episode of atrial fibs in the intraoperative procedure. Currently admitted after undergoing revision of left total knee replacement. Given the embolism rest postoperatively he has been placed on apixaban 2-1/2 mg twice per day per orthopedics for a few weeks. Does not typically take therapeutic anticoagulation with no documented history of PAF. He does have a history of PAT,SSS. He has had episodes of bradycardia with brief episodes of PAT but he has been asymptomatic with a lower heart rates. No syncopal events. Allergies Allergy/AdvReac Type Severity Reaction Status Date / Time No Known Allergies Allergy Verified 09/05/25 09:58 Home Medications Medication Instructions Recorded Confirmed Type cholecalciferol (vitamin D3) 50 50 mcg PO QAM 08/20/25 09/05/25 History mcg (2,000 unit) capsule (Vitamin D3) cyanocobalamin (vitamin B-12) 1,000 mcg PO QAM 08/20/25 09/05/25 History 1,000 mcg capsule docusate sodium 100 mg capsule 200 mg PO HS 08/20/25 09/05/25 History (Stool Softener) memantine 10 mg tablet 10 mg PO BID 08/20/25 09/05/25 History multivitamin 1 tab PO QAM 08/20/25 09/05/25 History tamsulosin 0.4 mg capsule 0.4 mg PO BID 08/20/25 09/05/25 History acetaminophen 500 mg tablet 1,000 mg (2 x 500 mg) PO Q8H #90 09/05/25 Rx (Tylenol Extra Strength) tabs aspirin 81 mg tablet,delayed 81 mg PO BID #60 tabs 09/05/25 Rx release cefadroxil 500 mg capsule 500 mg PO Q12H #28 caps 09/05/25 Rx celecoxib 200 mg capsule (Celebrex) 200 mg PO Q12H #60 caps 09/05/25 Rx oxycodone 5 mg tablet 5 mg PO Q4H PRN pain #30 tabs 09/05/25 Rx Patient History Medical History (Updated 09/06/25 @ 10:53 by YESI Jauregui) SSS (sick sinus syndrome) follows with [facility] Parkinsonism follows with [facility] Arthritis BPH (benign prostatic hyperplasia) Constipation Memory problem new dx Surgical History History of anesthesia reaction difficulty voiding after surgery>required catheter H/O elbow surgery right History of repair of rotator cuff left History of total knee replacement right/left H/O prostate biopsy benign History of colonoscopy History of appendectomy History of tooth extraction History of tonsillectomy History of cataract surgery right Family History Other No family history of adverse response to anesthesia Social History Smoking Status: Never smoker Second Hand Exposure: No; Do You Dip or Chew Tobacco: No; Tobacco Cessation Education Requested by Patient: No Hx Alcohol Use: No Hx Substance Use: No Preferred Language: Cymro Communication Ability: Effective Hot Room Attendant Required: No Beliefs That Will Affect Care: None Current Living Situation: Spouse Other Information That Helps Us Care for You: No Feels Safe at Home: Yes Safety Concerns: Feels Safe At This Time Assistive Devices: Cane and Walker Review of Systems Constitutional: + weakness Respiratory: no cough, no dyspnea and no dyspnea on exertion Cardiovascular: no chest pain, no palpitations and no syncope Gastrointestinal: no abdominal pain and no vomiting Neurologic: no dizziness Physical Exam Constitutional: WD/WN, vitals as above well developed and well nourished; no acute distress Eyes: PERRL, conjunctivae normal, anicteric sclerae Neck: trachea midline, no thyromegaly Respiratory: normal respiratory effort, lungs clear to auscultation Cardiovascular: RRR, no murmur, no edema Vessels: no JVD Extremities: normal capillary refill; no edema Gastrointestinal (Abdomen): normal bowel sounds, soft, nontender, no hepatosplenomegaly Skin: no rashes, warm and dry Psychiatric: A+Ox3, euthymic affect Results & Data Vital Signs (Past 12 Hours) Vital Signs Temp Pulse Pulse Resp BP Pulse Ox O2 Del Method 09/06/25 07:25 36.4 C L 64 18 131/75 96 Room Air 09/06/25 07:12 64 09/06/25 03:24 112/59 L 09/06/25 02:32 36.4 C L 68 18 94/52 L 95 Room Air Laboratory Results CBC 09/05/25 09/06/25 Range/Units 23:37 05:32 WBC 17.06 H 15.41 H (4.8-10.8) K/ul RBC 4.44 L 4.10 L (4.70-6.10) M/uL Hgb 14.1 12.9 L (14.0-18.0) g/dL Hct 41.4 L 38.3 L (42.0-52.0) % Plt Count 229 219 (130-400) K/uL Neut # (Auto) 15.89 H (1.40-6.50) K/uL Lymph # (Auto) 0.47 L (1.20-3.40) K/uL Refugio # (Auto) 0.60 H (0.11-0.59) K/uL Eos # (Auto) 0.00 (0.00-0.50) K/uL Baso # (Auto) 0.02 (0.00-0.20) K/uL Comprehensive Metabolic Panel 09/05/25 09/06/25 Range/Units 23:37 05:32 Sodium 135 L 135 L (136-145) mmol/L Potassium 4.6 4.4 (3.5-5.1) mmol/L Chloride 103 105 (98-107) mmol/L Carbon Dioxide 25 25 (21-32) mmol/L BUN 23 25 H (6-23) mg/dl Creatinine 1.01 1.06 (0.6-1.4) mg/dl Glucose 146 H 115 H (70-99(Fasting)) mg/dl Calcium 8.6 8.4 L (8.6-10.3) mg/dl Intake and Output 09/05/25 09/06/25 09/06/25 22:59 06:59 14:59 Intake Total 2000 / 2935 300 / 2935 1000 / 1000 Output Total 1330 / 1450 120 / 1450 Balance 670 / 1485 180 / 1485 1000 / 1000 Intake: IV 100 / 835 100 / 835 1000 / 1000 Sodium Chloride 0.9% 1,000 ml @ 1000 / 1000 100 mls/hr IV .Q10H FRANK Rx#: [id number] Tranexamic Acid / 0.7% NaCl 1, 100 / 200 100 / 200 000 mg In 100 ml @ 600 mls/hr IV Q6H FRANK Rx#:[id number] IV Perioperative 1900 / 1900 Oral 200 / 200 Output: Estimated Blood Loss 300 / 300 Urine Amount (Catheter) 950 / 950 Straight 950 / 950 Drain Output 80 / 200 120 / 200 Left Knee Hemovac #1 80 / 200 120 / 200 Other: Weight 109.2 kg Weight Measurement Method Built in [facility] Diagnostic Findings Laboratory Results WBC 15.41 K/ul (4.8-10.8) H 09/06/25 05:32 RBC 4.10 M/uL (4.70-6.10) L 09/06/25 05:32 Hgb 12.9 g/dL (14.0-18.0) L 09/06/25 05:32 Hct 38.3 % (42.0-52.0) L 09/06/25 05:32 MCV 93.4 fL (80.0-100.0) 09/06/25 05:32 MCH 31.5 pg (25.0-34.0) 09/06/25 05:32 MCHC 33.7 g/dL (32.0-36.0) 09/06/25 05:32 RDW Std Deviation 41.3 fL (36.4-46.3) 09/06/25 05:32 RDW Coeff of Mireya 11.9 % (11.5-14.5) 09/06/25 05:32 Plt Count 219 K/uL (130-400) 09/06/25 05:32 MPV 10.2 fL (9.4-12.4) 09/06/25 05:32 Immature Gran % (Auto) 0.5 % 09/05/25 23:37 Neut % (Auto) 93.1 % 09/05/25 23:37 Lymph % (Auto) 2.8 % 09/05/25 23:37 Refugio % (Auto) 3.5 % 09/05/25 23:37 Eos % (Auto) 0.0 % 09/05/25 23:37 Baso % (Auto) 0.1 % 09/05/25 23:37 Neut # (Auto) 15.89 K/uL (1.40-6.50) H 09/05/25 23:37 Lymph # (Auto) 0.47 K/uL (1.20-3.40) L 09/05/25 23:37 Refugio # (Auto) 0.60 K/uL (0.11-0.59) H 09/05/25 23:37 Eos # (Auto) 0.00 K/uL (0.00-0.50) 09/05/25 23:37 Baso # (Auto) 0.02 K/uL (0.00-0.20) 09/05/25 23:37 Immature Gran # (Auto) 0.08 K/uL (0.01-0.20) 09/05/25 23:37 Echinocytes 1+ 09/05/25 23:37 Sodium 135 mmol/L (136-145) L 09/06/25 05:32 Potassium 4.4 mmol/L (3.5-5.1) 09/06/25 05:32 Chloride 105 mmol/L (98-107) 09/06/25 05:32 Carbon Dioxide 25 mmol/L (21-32) 09/06/25 05:32 Anion Gap 5 (3-11) 09/06/25 05:32 BUN 25 mg/dl (6-23) H 09/06/25 05:32 Creatinine 1.06 mg/dl (0.6-1.4) 09/06/25 05:32 Est Cr Clr Drug Dosing 74.4 ml/min 09/06/25 05:32 eGFR 71.83 09/06/25 05:32 BUN/Creatinine Ratio 23.6 (10-20) H 09/06/25 05:32 Glucose 115 mg/dl (70-99(Fasting)) H 09/06/25 05:32 POC Glucose 100 mg/dl (70-99) H 09/06/25 08:18 Estimat Average Glucose 108 mg/dl 09/06/25 05:32 Hemoglobin A1c 5.4 % (4.5-5.6) 09/06/25 05:32 Lactate 2.0 mmol/L (0.4-2.0) 09/05/25 23:37 Calcium 8.4 mg/dl (8.6-10.3) L 09/06/25 05:32 Magnesium 2.1 mg/dl (1.7-2.4) 09/05/25 23:37 PG Care Time/CCT Total # of Minutes Spent Total Time Spent with Patient: Total time spent is greater than 50% in coordination of care (as documented) at patient's floor/unit and/or counseling patient: Coding [place] [address] IN/OBS CONSULT LVL 4,60M Patient Type Established Medical Decision Making Moderate Complexity Diagnoses PAT (paroxysmal atrial tachycardia) I47.19 RBBB I45.10
--- NOTE | 2025-09-06 14:34 | XRay Report ---
EXAM: Radiographs of the Left Knee 3 Views INDICATION: Postop TECHNIQUE: Three views of the left knee. COMPARISON: No relevant prior studies available. FINDINGS: Bones/joints: Satisfactory appearance of total knee arthroplasty components. No fracture, subluxation or dislocation. Soft tissues: Expected postoperative gas and swelling noted in the operative bed. There is at least [address] IMPRESSION: Satisfactory appearance of knee arthroplasty. ACT 112: N/A Electronically signed by Huyen Starr 09-06-2025 2:33 PM
[2025-09-06] MEDS: APIXABAN 2.5 MG TAB PO SCH (20:56)
[2025-09-06] MEDS: SENNA 8.6 MG TAB PO SCH (21:05)
--- NOTE | 2025-09-07 09:56 | Hospitalist Progress Note ---
Date of Service September 07, 2025 Assessment & Plan (1) Loosening of knee joint prosthesis: Plan: Final Assessment and Recommendations as follows : #Status post left TKA -Feeling well today Plan -PT/OT -DVT proph with eliquis -Pain control -Drain per ortho -Management per ortho #History of SSS, paroxysmal atrial tachycardia -He does NOT yet have a PPM -He is not on eliquis at home -Reviewed most recent OP cardio note -Currently rate controlled without RC medications -Brief episode of intraoperative afib per reports Plan -Appreciate cardio input -Continue eliquis 2.5 mg BID upon discharge -Zio patch being coordinated by cardio -OP f/u with cardio in 1 month -Cardiac monitoring #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 no edwards I spent a total of 46 minutes coordinating, documenting, and providing care for this patient excluding time spent in the performance of separately billed services. This included personally reviewing all current laboratories and imaging studies, medical reconciliation, outpatient chart review and discussion with specialists Admission and Anticipated Discharge Date Admission Date: September 05, 2025 Subjective feeling well this AM. author assisted patient in getting his hearing aid battery out. Patient denies F/C, CP, palpitations, SOB, dyspnea, abd pain, N/V/D Physical Exam Physical Exam: Vitals and labs reviewed General: Well appearing, NAD HEENT: EOMI, PERRLA Neck: Supple Cardiac: RRR no rubs gallops or murmurs Lungs: CTA no rhonchi wheezing or rales Abd: S NT ND BS positive : No edwards MSK: drain in place Full ROM. No obvious deformities Ext: No Edema cyanosis Skin: Warm, Dry Neuro: AOx3 No focal deficits. Psych: Normal Mood Results & Data Results & Data Vital Signs (Past 12 Hours) Vital Signs Temp Pulse Pulse Resp BP BP Pulse Ox 09/07/25 07:37 36.8 C 64 20 101/59 L 92 09/07/25 07:10 65 09/07/25 03:09 70 107/56 L 95 09/07/25 02:47 37.4 C 75 16 93/51 L 93 09/06/25 23:00 36.6 C 77 16 125/67 93 O2 Del Method 09/07/25 07:37 Room Air 09/07/25 07:10 09/07/25 03:09 Room Air 09/07/25 02:47 Room Air 09/06/25 23:00 Room Air (1) Loosening of knee joint prosthesis Encounter type: initial encounter Qualified Code(s): T84.038A - Mechanical loosening of other internal prosthetic joint, initial encounter; Z96.659 - Presence of unspecified artificial knee joint
--- NOTE | 2025-09-07 11:12 | Orthopedic Progress Note ---
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 I showed pictures to the patient of what metallosis looks like as well as discussed the procedure that he underwent. The patient will participate in PT/OT today. Because of the length of time of the tourniquet, the patient will be on Eliquis 2.5 mg twice daily for at least 2 weeks for DVT prophylaxis. Will also continue DANIELA stockings and SCDs. Appreciate cardiology input. No further workup while inpatient. Patient will follow-up with cardiology as an outpatient. Pain controlas written. Discharge planningsince the patient seems to be doing well today, we will plan for discharge home today. He states he is set up for outpatient physical therapy tomorrow. The Hemovac drain will be removed prior to discharge. He did not have a hemoglobin or hematocrit done today so I will check it prior to discharge. Admission and Anticipated Discharge Date Admission Date: September 05, 2025 Subjective Patient is doing well today. States he does not have any pain in the left knee. He has not ambulated much but has been sitting in his bedside chair. He did ambulate last night. Still waiting physical therapy for today. Physical Exam Constitutional: WD/WN, vitals as above well developed and well nourished; no acute distress (Sitting in the bedside chair.) Musculoskeletal: Knee: + surgical incision (Left knee dressing C/D/I. CINDY in place and functioning.) and + surgical drain present (125 cc overnight. Fairly mild drainage in the container at this time.); knee normal to inspection, no skin erythema and no ecchymosis Skin: no rashes, warm and dry Trauma: no evidence of skin trauma Neurologic: normal touch/pain/proprioception Psychiatric: A+Ox3, euthymic affect Speech: normal rate/rhythm/volume of speech Results & Data Vital Signs (Past 12 Hours) Vital Signs Temp Pulse Pulse Resp BP BP Pulse Ox 09/07/25 07:37 36.8 C 64 20 101/59 L 92 09/07/25 07:10 65 09/07/25 03:09 70 107/56 L 95 09/07/25 02:47 37.4 C 75 16 93/51 L 93 O2 Del Method 09/07/25 07:37 Room Air 09/07/25 07:10 09/07/25 03:09 Room Air 09/07/25 02:47 Room Air (1) Loosening of knee joint prosthesis Encounter type: initial encounter Qualified Code(s): T84.038A - Mechanical loosening of other internal prosthetic joint, initial encounter; Z96.659 - Presence of unspecified artificial knee joint
--- NOTE | 2025-09-07 11:38 | Electrocardiogram Report ---
Test Reason : Blood Pressure : */* mmHG Vent. Rate : 76 BPM Atrial Rate : 76 BPM P-R Int : 204 ms QRS Dur : 138 ms QT Int : 428 ms P-R-T Axes : 37 228 56 degrees QTcB Int : 481 ms Sinus rhythm with Premature atrial complexes Right bundle branch block Abnormal ECG When compared with ECG of 26-Apr-2018 12:33, Premature ventricular complexes are no longer Present Premature atrial complexes are now Present Vent. rate has increased by 27 bpm Right bundle branch block has replaced Non-specific intra-ventricular conduction delay Confirmed by Gustavo Rizvi ([id number]) on 09/07/2025 11:37:22 AM Referred By: Luis Jaramillo Confirmed By: Gustavo Rizvi
[2025-09-07 11:47] LABS: Hematocrit (blood only) 34.6 % (42.0-52.0); Hemoglobin 11.8 g/dL (14.0-18.0)
--- NOTE | 2025-09-08 09:05 | Hospitalist Progress Note ---
Date of Service September 08, 2025 Assessment & Plan (1) Loosening of knee joint prosthesis: Plan: Final Assessment and Recommendations as follows : #Status post left TKA -Feeling well today Plan -PT/OT recommending SNF placement -DVT proph with eliquis -Pain control -Drain per ortho -Management per ortho #Anemia -Acute blood loss anemia secondary to surgery -Hgb dropped from 14/1 to 11.8 -No s/s active bleeding -Recheck Hgb today #Constipation -Still no BM but passing gas and eating without issue -No abd pain, N/V -Low suspicion for ileus or SBO -Add miralax to bowel regimen #History of SSS, paroxysmal atrial tachycardia -He does NOT yet have a PPM -He is not on eliquis at home -Reviewed most recent OP cardio note -Currently rate controlled without RC medications -Brief episode of intraoperative afib per reports Plan -Appreciate cardio input -Continue eliquis 2.5 mg BID upon discharge -Zio patch being coordinated by cardio -OP f/u with cardio in 1 month -Cardiac monitoring #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 no edwards I spent a total of 44 minutes coordinating, documenting, and providing care for this patient excluding time spent in the performance of separately billed services. This included personally reviewing all current laboratories and imaging studies, medical reconciliation, outpatient chart review and discussion with specialists Admission and Anticipated Discharge Date Admission Date: September 05, 2025 Subjective Patient is doing well today. Patient denies F/C, CP, palpitations, SOB, dyspnea, abd pain, N/V/D Physical Exam Physical Exam: Vitals and labs reviewed General: Well appearing, NAD HEENT: EOMI, PERRLA Neck: Supple Cardiac: RRR no rubs gallops or murmurs Lungs: CTA no rhonchi wheezing or rales Abd: S NT ND BS positive : No edwards MSK: drain removed Full ROM. No obvious deformities Ext: No Edema cyanosis Skin: Warm, Dry Neuro: AOx3 No focal deficits. Psych: Normal Mood Results & Data Results & Data Vital Signs (Past 12 Hours) Vital Signs Temp Pulse Pulse Resp BP Pulse Ox O2 Del Method 09/08/25 08:19 37.4 C 80 18 130/67 91 Room Air 09/08/25 08:18 Room Air 09/08/25 06:45 78 09/08/25 02:21 37.3 C 76 16 111/56 L 92 Room Air 09/07/25 22:39 37.3 C 66 18 107/57 L 97 Room Air 09/07/25 22:02 63 Laboratory Results Abnormal lab results 09/07/25 Range/Units 11:22 Hgb 11.8 L (14.0-18.0) g/dL Hct 34.6 L (42.0-52.0) % (1) Loosening of knee joint prosthesis Encounter type: initial encounter Qualified Code(s): T84.038A - Mechanical loosening of other internal prosthetic joint, initial encounter; Z96.659 - Presence of unspecified artificial knee joint
[2025-09-08] MEDS: POLYETHYLENE (MIRALAX) 17 GM PACK PO SCH (09:19)
--- NOTE | 2025-09-08 10:43 | Orthopedic Progress Note ---
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 I showed pictures to the patient of what metallosis looks like as well as discussed the procedure that he underwent. The patient will participate in PT/OT today. Because of the length of time of the tourniquet, the patient will be on Eliquis 2.5 mg twice daily for at least 2 weeks for DVT prophylaxis. Will also continue DANIELA stockings and SCDs. Appreciate cardiology input. No further workup while inpatient. Patient will follow-up with cardiology as an outpatient. Pain controlas written. Discharge planningyesterday, physical therapy was recommending a stay at another facility for rehabilitation. Case management is awaiting insurance authorization today. If authorization is received and a bed is available, the patient may be discharged later today. Admission and Anticipated Discharge Date Admission Date: September 05, 2025 Subjective Patient continues to do well today. No pain complaints today. States he had ambulated a little yesterday but not as much as he did on postop day #1. No new complaints today. Physical Exam Constitutional: WD/WN, vitals as above well developed and well nourished; no acute distress (Sitting in the bedside chair.) Musculoskeletal: Knee: + surgical incision (Left knee dressing C/D/I. CINDY in place and functioning.); knee normal to inspection, no skin erythema, no ecchymosis and no surgical drain present (Hemovac drain was removed yesterday.) Skin: no rashes, warm and dry Trauma: no evidence of skin trauma Neurologic: normal touch/pain/proprioception Psychiatric: A+Ox3, euthymic affect Speech: normal rate/rhythm/volume of speech Results & Data Vital Signs (Past 12 Hours) Vital Signs Temp Pulse Pulse Resp BP Pulse Ox O2 Del Method 09/08/25 08:19 37.4 C 80 18 130/67 91 Room Air 09/08/25 08:18 Room Air 09/08/25 06:45 78 09/08/25 02:21 37.3 C 76 16 111/56 L 92 Room Air Laboratory Results Laboratory Tests 09/07/25 09/08/25 11:22 09:48 Hgb 11.8 L 11.9 L Hct 34.6 L (1) Loosening of knee joint prosthesis Encounter type: initial encounter Qualified Code(s): T84.038A - Mechanical loosening of other internal prosthetic joint, initial encounter; Z96.659 - Presence of unspecified artificial knee joint
[2025-09-08] MEDS: MAGNESIUM HYDROXIDE SUSP 30 ML UDC PO PRN (21:01)
--- NOTE | 2025-09-09 10:00 | Hospitalist Progress Note ---
Date of Service September 09, 2025 Assessment & Plan (1) Loosening of knee joint prosthesis: Plan: Final Assessment and Recommendations as follows : #Status post left TKA -Feeling well today Plan -PT/OT recommending rehab but denied by insurance. Family taking patient home today -DVT proph with eliquis -Pain control -Management per ortho #Anemia -Acute blood loss anemia secondary to surgery -Hgb dropped from 14/1 to 11.8 -No s/s active bleeding -Hgb stable #Constipation -BM this AM -Advised to family that he continue to take OTC miralax once daily at home #History of SSS, paroxysmal atrial tachycardia -He does NOT yet have a PPM -He is not on eliquis at home -Reviewed most recent OP cardio note -Currently rate controlled without RC medications -Brief episode of intraoperative afib per reports Plan -Appreciate cardio input -Continue eliquis 2.5 mg BID upon discharge -Zio patch being coordinated by cardio -OP f/u with cardio in 1 month -Cardiac monitoring #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 no edwards I spent a total of 43 minutes coordinating, documenting, and providing care for this patient excluding time spent in the performance of separately billed services. This included personally reviewing all current laboratories and imaging studies, medical reconciliation, outpatient chart review and discussion with specialists Admission and Anticipated Discharge Date Admission Date: September 05, 2025 Subjective Patient continues to do well today. No pain complaints today. Feeling well and denies any complaints. family at bedside. answered questions. Physical Exam Physical Exam: Vitals and labs reviewed General: Well appearing, NAD HEENT: EOMI, PERRLA Neck: Supple Cardiac: RRR no rubs gallops or murmurs Lungs: CTA no rhonchi wheezing or rales Abd: S NT ND BS positive : No edwards MSK: Full ROM. No obvious deformities Ext: No Edema cyanosis Skin: Warm, Dry Neuro: AOx3 No focal deficits. Psych: Normal Mood Results & Data Results & Data Vital Signs (Past 12 Hours) Vital Signs Temp Pulse Pulse Resp BP Pulse Ox O2 Del Method 09/09/25 08:06 37.2 C 63 17 109/61 94 Room Air 09/09/25 05:00 68 09/09/25 04:00 37.4 C 74 16 122/72 95 Room Air 09/08/25 23:13 37.2 C 70 18 133/64 96 Room Air Laboratory Results Abnormal lab results 09/08/25 Range/Units 09:48 Hgb 11.9 L (14.0-18.0) g/dL (1) Loosening of knee joint prosthesis Encounter type: initial encounter Qualified Code(s): T84.038A - Mechanical loosening of other internal prosthetic joint, initial encounter; Z96.659 - Presence of unspecified artificial knee joint
--- NOTE | 2025-09-10 10:48 | Discharge Summary ---
Date of Service September 10, 2025 Admission HPI Per Admitting Provider 80-year-old male with chronic left knee pain status post left total knee arthroplasty in 2013. Patient denies headaches, sweats, fevers, chills, double vision, blurred vision, cough, sore throat, dysphagia, chest pain, sob, wheezing, n/v/d/c, numbness, tingling, fatigue, urinary symptoms, mood disorders. 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 CINDY in place and functioning.); knee normal to inspection, no skin erythema, no ecchymosis and no surgical drain present (Hemovac drain was removed yesterday.) Skin no rashes, warm and dry Trauma: no evidence of skin trauma Neurologic normal touch/pain/proprioception Psychiatric A+Ox3, euthymic affect Speech: normal rate/rhythm/volume of speech Discharge Data Allergies Allergy/AdvReac Type Severity Reaction Status Date / Time No Known Allergies Allergy Verified 09/05/25 09:58 Consultations 09/02/25 17:19 Consult Hospitalist Routine 09/05/25 19:59 Consult Cardiology Routine Procedures Performed Operation Date: 09/05/25 12:00 Actual Procedures p Revision of left total knee all components, Revision of avascular bone fragments of patella,(Left) - Luis Jaramillo MD Ordered Studies 09/05/25 05:00 US - OR guided needle placemen Routine Hospital Course (1) Loosening of knee joint prosthesis: POD #4 s/p Revision of left total knee all 3 components, excision of multiple displaced avascular bone fragments of patella, electrocautery synovectomy and 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 I showed pictures to the patient of what metallosis looks like as well as discussed the procedure that he underwent. The patient will participate in PT/OT today. Because of the length of time of the tourniquet, the patient will be on Eliquis 2.5 mg twice daily for at least 2 weeks for DVT prophylaxis. Will also continue DANIELA stockings and SCDs. Appreciate cardiology input. No further workup while inpatient. Patient will follow-up with cardiology as an outpatient. Pain controlas written. Discharge planningyesterday, physical therapy was recommending a stay at another facility for rehabilitation. Case management is awaiting insurance authorization today. If authorization is received and a bed is available, the patient may be discharged later today. Total Time Total Time Spent Total Time Spent (In Minutes): 60 Discharge Plan Discharge Items Patient Disposition: Home - Self-Care Reason For Visit: Left Total Knee Arthroplasty Mechanical Loosening Discharge Diagnosis: Loosening of left total arthroplasty patella Activity: Per Instructions section Non-emergency contact: Primary Care Provider and Surgeon Call non-emergency contact if: your pain is not controlled, your pain is wor sening and your temperature is above 101 Follow-up/Referrals: Rahel Kilpatrick MD [Primary Care Provider] - Diet: Regular Addtl Attending Provider Instructions: ACTIVITY RECOMMENDATIONS: SELF CARE INSTRUCTIONS AFTER TOTAL KNEE POLYETHYLENE EXCHANGE A. You may need to continue a physical therapy program after discharge from the hospital. There are several options available to you. Your doctor will assist you in selecting the best one for you. 1. An out-patient facility 3 times a week for therapy. 2. Home therapy for 1 to 2 weeks with outpatient therapy to follow. 3. Continue working on all exercises taught by physical therapy three times a day for 20 minutes on non-therapy days. Your goals should be to increase the bending of your knee to 90 degrees and beyond and to fully straighten your knee. Ice and elevate knee after exercise. B. Weight as tolerated with a walker or as instructed by your physician. C. It is okay to shower if minimal to no drainage from incision. No Baths. Do not soak wound. D. Make walking a part of your daily routine. Be up as much as comfortable with rest periods throughout the day. Rest with leg elevation is very important. Use the ice wrap frequently for the first 3-4 weeks. E. There are no restrictions on activities. You may ride in a car, shop, participate in drain tiler and all social activities. F. Wear the long elastic stockings (DANIELA hose) 20 hours a day for one month after surgery. They can be removed several times a day for laundering and when showering. G. You may return to previous diet. H. CINDY dressing: You have a CINDY dressing on your surgical wound. It will remain in place for 7 days from surgery. You will be provided with a booklet with the do's and don'ts with the dressing in place. After 7 days, the dressing may be removed. If there is drainage from the surgical incision, you may cover the wound with dry dressings. I. You will have collagen dressings sent to your home. These dressings will be started once the CINDY dressing is removed 7 days after surgery. SPECIAL CARE INSTRUCTIONS: VERY IMPORTANT TO READ AND REVIEW A. Take Coumadin, Xarelto, Aspirin or Lovenox (blood thinning medications) as directed by your doctor. If on Coumadin, have a pro-time (blood test) drawn according to your doctor's instructions. This will tell the doctor how well the Coumadin is thinning your blood. B. There are a few signs you need to watch for after you are home. Call [facility] if you notice any of the followin. Increased severe knee pain. Some pain is expected especially when you exercise. 2. Increased swelling in your leg or knee; pain or swelling of the calf muscle in either lower leg. 3. Any redness or fluid drainage from the incision. 4. Shortness of breath or chest pain. 5. A Temperature of 101 degrees F or greater. C. Please call [facility] at if you have any concerns or questions about your operation or recovery. The doctor or his nurse will return your call promptly. D. You must take antibiotics before dental work, bladder, bowel or other surgery. Your doctor will provide you with a permanent care to carry describing this precaution. FOLLOW UP VISIT: If appointment is not already scheduled: Please call [facility] to make a follow-up appointment for 2 weeks after your surgery at . Pending Studies at Discharge: No Stand-Alone Forms: My Guitar Party, Smoking Cessation Medications and DC Order Prescriptions: New celecoxib [Celebrex] 200 mg capsule 200 mg PO Q12H Qty: 60 0RF aspirin 81 mg tablet,delayed release (DR/EC) 81 mg PO BID Qty: 60 0RF cefadroxil 500 mg capsule 500 mg PO Q12H Qty: 28 0RF oxycodone 5 mg tablet 5 mg PO Q4H PRN (Reason: pain) Qty: 30 0RF acetaminophen [Tylenol Extra Strength] 500 mg tablet 1,000 mg PO Q8H Qty: 90 0RF Continued multivitamin Tablet 1 tab PO QAM tamsulosin 0.4 mg Capsule 0.4 mg PO BID docusate sodium [Stool Softener] 100 mg Capsule 200 mg PO HS memantine 10 mg Tablet 10 mg PO BID cholecalciferol (vitamin D3) [Vitamin D3] 50 mcg (2,000 unit) Capsule 50 mcg PO QAM cyanocobalamin (vitamin B-12) 1,000 mcg Capsule 1,000 mcg PO QAM Discharge Orders: Discharge Order (Routine); Ordered 09/09/25 Ordered By: Bobby Hermosillo/Other Patient Handouts: Your Heart's Electrical System, How Your Knee Works, RICE Admission Data Admit Date/Time: 09/05/25 13:27 Attending Provider: Luis Jaramillo Admit Provider: Luis Jaramillo Primary Care Provider: Rahel Kilpatrick Other Providers: Bobby Mckoy; Celi Sánchez; [facility]; [facility]; Greg Ramos. Other Interventions: Discharge Summary Assessment (RN) Last Done: 09/09/25 10:50
== END 2025-09-09 11:22 | disposition home or self-care (01) | DRG 467 ==
LOC: ASU 09:16 → 2N 13:27
DX: T84.89XA Other specified complication of internal orthopedic prosthetic devices, implants and grafts, initial encounter; M87.08 Idiopathic aseptic necrosis of bone, other site; D72.829 Elevated white blood cell count, unspecified; D62 Acute posthemorrhagic anemia; I49.5 Sick sinus syndrome; T84.053A Periprosthetic osteolysis of internal prosthetic left knee joint, initial encounter; F02.A0 Dementia in other diseases classified elsewhere, mild, without behavioral disturbance, psychotic disturbance, mood disturbance, and anxiety; G20.A1 Parkinson's disease without dyskinesia, without mention of fluctuations; T84.013A Broken internal left knee prosthesis, initial encounter; Z96.653 Presence of artificial knee joint, bilateral; M65.862 Other synovitis and tenosynovitis, left lower leg; T84.033A Mechanical loosening of internal left knee prosthetic joint, initial encounter; K59.00 Constipation, unspecified; T84.063A Wear of articular bearing surface of internal prosthetic left knee joint, initial encounter; I48.0 Paroxysmal atrial fibrillation; I95.81 Postprocedural hypotension; N40.0 Benign prostatic hyperplasia without lower urinary tract symptoms; Y92.019 Unspecified place in single-family (private) house as the place of occurrence of the external cause; I45.10 Unspecified right bundle-branch block; Y79.2 Prosthetic and other implants, materials and accessory orthopedic devices associated with adverse incidents